=== PATIENT | female | born 1975 | race Caucasian/White ===

== ENCOUNTER → 2023-10-10 10:14 | Outpatient (REF) | payer MEDICARE, OTHER, SELFPAY | LOC: WDC 10:14 | PROVIDERS: ATTENDING PHYSICIAN Family Medicine | DX: N60.09 Solitary cyst of unspecified breast (principal); R92.8 Other abnormal and inconclusive findings on diagnostic imaging of breast | CPT/HCPCS: 76642; 77065 ==

== ENCOUNTER → 2024-03-23 14:54 | Outpatient (REF) | payer MEDICARE, OTHER, SELFPAY | LOC: RAD 14:54 | PROVIDERS: ATTENDING PHYSICIAN Surgery Vascular Surgery; FAMILY PHYSICIAN Family Medicine | DX: I77.0 Arteriovenous fistula, acquired (principal) | CPT/HCPCS: 93990 ==

== ENCOUNTER → 2024-04-29 07:43 | Outpatient (REF) | payer MEDICARE, OTHER, SELFPAY | LOC: WDC 07:43 | PROVIDERS: ATTENDING PHYSICIAN Family Medicine | DX: R92.8 Other abnormal and inconclusive findings on diagnostic imaging of breast (principal) | CPT/HCPCS: 76642 ==

== ENCOUNTER 2024-05-04 10:09 | Day surgery (SDC) | payer MEDICARE, OTHER, SELFPAY ==
[2024-05-04] VITALS (9 sets, daily range): BP systolic 13–141; BP diastolic 68–80; BMI 16.9
[2024-05-04 10:50] LABS: Hematocrit 36.6 % (37.0-47.0); Hemoglobin 12.3 g/dL (12.0-16.0); Mean Corp Hgb Conc. 33.6 g/dL (33.0-37.0); Mean Corpuscular Hgb 30.7 pg (27.0-31.0); Mean Corpuscular Volume 91.3 fL (81.0-99.0); Platelet Count 265 10^3/uL (130-400); Red Blood Cell Count 4.01 10^6/uL (4.20-5.40); Red Cell Dist. Width 12.3 % (11.5-14.5); White Blood Cell Count 4.3 10^3/uL (4.8-10.8)
[2024-05-04 11:04] LABS: PT 13.2 Sec (11.4-14.6)
[2024-05-04 11:05] LABS: APTT 31.4 Sec (23.4-35.0)
[2024-05-04 11:07] LABS: Blood Urea Nitrogen 16 mg/dl (7-17); Calcium 9.8 mg/dl (8.4-10.2); Carbon Dioxide 25 mmol/L (22-30); Chloride 104 mmol/L (98-107); Estimated Creatinine Clearance 51 ml/min; Glucose 102 mg/dl (70-99); Potassium 5.3 mmol/L (3.5-5.1); Sodium 139 mmol/L (135-145); eGFR > 60.00
[2024-05-04] MEDS: NSS 500 IV (11:28)
--- NOTE | 2024-05-04 11:38 | HP.FOC2 ---
Focused History & Physical
Chief Complaint
HPI:
Chief Complaint: Plan to preserve fistula while off HD status post transplant
HPI / Indication for Planned Procedure: 48-year-old female status post kidney transplant, doing well, off HD. Here for planned procedure today, fistulogram to preserve patency of the AV fistula. Previous fistulogram we ballooned the
proximal/perianastomotic stenosis. Patient agrees to proceeding with planned procedure today
Relevant Past Medical History: Other (Anemia, anorexia, CKD, peripheral neuropathy, cataracts, current smoker, alcohol abuse, hypercalcemia, vitamin B12 deficiency, folate deficiency, pancreatitis, cirrhosis of the liver,)
Relevant Social History: ETOH and Tobacco Use
Relevant Family History: Negative
Relevant Past Surgical History: Positive for (Left upper extremity AV fistula creation, fistula thrombectomy, fistulogram, kidney transplant October 2023, bilateral cataract surgery)
Medication
See Medication form for detailed medications: Yes
Medication List (including Herbals & OTC):
gabapentin 300 mg capsule 300 mg PO BID Neurological Condition 11/30/20
quetiapine 100 mg tablet (Seroquel) 100 mg PO HS 03/23/21
Medical Marijuana 1 dose PO PRN PRN anxiety/SLEEP 07/12/22
omeprazole 20 mg capsule,delayed release 20 mg PO HS 07/12/22
alprazolam 0.5 mg tablet (Xanax) 0.5 mg PO PRN PRN Anxiety 04/30/24
atorvastatin 10 mg tablet (Lipitor) 10 mg PO DAILY 04/30/24
atovaquone 750 mg/5 mL oral suspension 1,500 mg PO DAILY 04/30/24
lamotrigine 150 mg tablet (Lamictal) 150 mg PO DAILY 04/30/24
lamotrigine 25 mg tablet (Lamictal) 25 mg PO DAILY 04/30/24
lorazepam 1 mg capsule,extended release 24 hr 1 mg PO HS 04/30/24
magnesium chloride 64 mg (magnesium chloride) tablet 360 mg PO BID 04/30/24
mycophenolate sodium 180 mg tablet,delayed release 720 mg PO BID 04/30/24
quetiapine 25 mg tablet (Seroquel) 25 mg PO DAILY 04/30/24
quetiapine 50 mg tablet (Seroquel) 50 mg PO DAILY 04/30/24
quetiapine 50 mg tablet (Seroquel) 50 mg PO DAILY@1500 04/30/24
tacrolimus 1 mg tablet,extended release 24 hr (Envarsus XR) 2 mg PO DAILY 04/30/24
tacrolimus 4 mg tablet,extended release 24 hr (Envarsus XR) 4 mg PO DAILY 04/30/24
Medications Reviewed: Yes
Allergies and Reactions
Patient has Allergies: Yes
Noted Allergies and Reactions:
Allergy/AdvReac Type Severity Reaction Status Date / Time
bupropion [From Wellbutrin] Allergy Unknown Verified 05/04/24 11:06
NSAIDS (Non-Steroidal Allergy Unknown Verified 05/04/24 11:06
Anti-Inflamma
Sulfa (Sulfonamide Allergy Unknown Verified 05/04/24 11:06
Antibiotics)
Pertinent Physical Exam
All Other Systems: Negative
Head/Neck: Normal
Lungs: Normal
Heart: Normal
Abdomen: Normal
Extremities: Normal
Neurological: Normal
Diagnosis / Assessment
Status post kidney transplant, plan to keep AV fistula patent while not on HD at this time
Plan / Procedure
Left upper extremity fistulogram, central venogram, possible angioplasty/stent
Anesthesia/Sedation to be done by Anesthesia Provider: Yes
--- NOTE | 2024-05-04 12:05 | W.SUR.PREOP ---
Pre-Operative Surgical Note
-
I have examined this patient prior to the performance of the scheduled procedure.
The patient's condition is unchanged from the time of the current History and
Physical and the patient is able to undergo the scheduled procedure.
--- NOTE | 2024-05-04 13:45 | W.SUR.POST ---
Surgical Immediate Post Op
Note
Pre Op Diagnosis: ESRD
Post Op Diagnosis: ESRD
Procedure Performed: LUE diagnostic fistulagram, central venogram
Primary Surgeon: Qi
Anesthesia: local and sedation
Estimated Blood Loss: <2cc
Fluids: see anesthesia flow sheet
Drains/Shunts: none
Specimens/Cultures: none
Doppler/Duplex/Angio (Y/N): Y
Complications: none
Operative Findings: Occluded AV anastomosis
--- NOTE | 2024-05-04 14:19 | OR.RPT ---
Operative Report
Operative Report
Date of Operation: 05/04/2024
Pre Op Diagnosis:
1.) Failing left upper extremity brachiobasilic AV fistula
2.) Status post successful kidney transplant
Post Op Diagnosis:
1.) Failing left upper extremity brachiobasilic AV fistula
2.) Status post successful kidney transplant
Procedure:
1.) Diagnostic left upper extremity fistulogram
2.) Ultrasound-guided percutaneous access to the left upper arm arteriovenous fistula
Surgeon: Hilton Busby III, MD
Anesthesia: Sedation
Complications: None
Fluoroscopy:
34.4 minutes
14 mGy
1.27 DAP
History and Indications for Procedure: 48-year-old female with existing left upper extremity brachiobasilic AV fistula. She underwent a successful kidney transplant and is no longer on dialysis however she was sent back for evaluation of her left
upper extremity fistula which demonstrated a weak thrill. Preoperative duplex imaging revealed significantly low flow volumes and a high grade stenosis of the ina-anastomotic vein. After discussion with her rural carrier associate we decided to pursue
intervention on the fistula for preservation.
Procedure in Detail: Lilo Mejia was correctly identified and placed supine on the operating table. After adequate induction of anesthesia the left arm was positioned, prepped and draped in the usual sterile fashion. Preoperative antibiotics were
administered. A timeout procedure was performed with the nursing and anesthesia staff confirming the patient�s identity as well as the nature and laterality of the procedure.
Intraoperative ultrasound was performed on the AV access. This was a transposed left upper arm brachiobasilic arteriovenous fistula.. Ultrasound demonstrated a compressible basilic vein with no thrombus. In the vein adjacent to the arteriovenous
anastomosis there appeared to be a high-grade stenosis or focal occlusion.
I identified a puncture site along the mid upper arm basilic vein and infiltrated local anesthesia at this site. Under ultrasound guidance I accessed the vein with a micropuncture needle facing towards the arteriovenous anastomosis and placed the
micropuncture sheath. I performed a fistulogram which demonstrated the following:
The basilic vein filled with contrast however no flow could be demonstrated within the fistula. The fistula simply filled with contrast but did not wash out. The arteriovenous anastomosis could not be visualized. There was no washout of contrast
from the fistula. The proximal portion of the vein adjacent to the arteriovenous anastomosis appeared to be occluded. I could not reflux any contrast or see a proximal stump. I proceeded with an attempted intervention to see if I could cross the
occluded proximal vein segment as well as the arteriovenous anastomosis, perhaps restore arterial flow through the fistula and preserve the access.
Attempted endovascular intervention:
Systemic heparin was administered. A short 5 Fr sheath was placed. Using an angled catheter and a Glidewire I attempted to navigate across the occluded segment of vein in the arteriovenous anastomosis. This was very challenging as there was no
clear stump to engage with either the wire or catheter. I attempted to cross with a combination of fluoroscopic guidance as well as ultrasound guidance to visualize the segment of proximal vein which was occluded. A regular Glidewire, stiff
Glidewire and a V18 wire were all used along with the angled catheter. Unfortunately I could not make any progress and my attempt at crossing the proximal vein and arteriovenous anastomosis failed. No further endovascular intervention was
performed.
At the conclusion of the procedure a monocryl suture was placed around the sheath puncture site. The sheath was removed and the suture secured. Hemostasis was achieved. A sterile dressing was applied.
The patient tolerated the procedure well and was taken to the PACU in stable condition
Signed:
Hilton Busby III, MD
[facility] Vascular Surgery
[phone] (cell)
== END 2024-05-04 15:00 | disposition home or self-care (01) ==
LOC: CATH 10:09
PROVIDERS: ATTENDING PHYSICIAN Surgery Vascular Surgery; FAMILY PHYSICIAN Family Medicine
DX: T82.858A Stenosis of other vascular prosthetic devices, implants and grafts, initial encounter (principal); Y83.2 Surgical operation with anastomosis, bypass or graft as the cause of abnormal reaction of the patient, or of later complication, without mention of misadventure at the time of the procedure; N18.6 End stage renal disease; I77.0 Arteriovenous fistula, acquired; Z94.0 Kidney transplant status; R63.0 Anorexia; D64.9 Anemia, unspecified; F10.10 Alcohol abuse, uncomplicated; G62.9 Polyneuropathy, unspecified; F17.210 Nicotine dependence, cigarettes, uncomplicated; N18.9 Chronic kidney disease, unspecified; E53.8 Deficiency of other specified B group vitamins; K70.30 Alcoholic cirrhosis of liver without ascites; I73.9 Peripheral vascular disease, unspecified; Z79.624 Long term (current) use of inhibitors of nucleotide synthesis
CPT/HCPCS: 36901; 76937; 80048; 85027; 85610; 85730; 93005; C1769; C1894; Q9967

== ENCOUNTER → 2024-05-05 13:07 | Outpatient (REF) | payer MEDICARE, OTHER, SELFPAY | LOC: HWRAD 13:07 | PROVIDERS: ATTENDING PHYSICIAN Family Medicine | DX: Z13.820 Encounter for screening for osteoporosis (principal); Z13.6 Encounter for screening for cardiovascular disorders; Z78.0 Asymptomatic menopausal state | CPT/HCPCS: 75571; 77080 ==

== ENCOUNTER → 2024-05-23 07:32 | Outpatient (REF) | payer MEDICARE, OTHER, SELFPAY | LOC: MRI 3T 07:32 | PROVIDERS: ATTENDING PHYSICIAN Family Medicine | DX: M54.50 Low back pain, unspecified (principal) | CPT/HCPCS: 72148 ==

== ENCOUNTER 2024-07-07 06:39 | Emergency (ER) | payer MEDICARE, OTHER, SELFPAY ==
[2024-07-07 06:42] VITALS: BP 129/92
[2024-07-07 07:22] VITALS: BMI 17.6
[2024-07-07 07:28] LABS: Urine Albumin Negative (Neg - Trace); Urine Bilirubin Negative (Negative); Urine Character Clear (Clear); Urine Color Yellow; Urine Glucose Negative (Negative); Urine Ketone Negative (Negative); Urine Leukocyte Trace (Negative); Urine Nitrite Negative (Negative); Urine Occult Blood Negative (Negative); Urine Specific Gravity 1.015 (<1.030); Urine Urobilinogen Negative (Neg - 1+)
[2024-07-07] MEDS: MORPHINE SULFATE 2 MG IV (07:38)
[2024-07-07 07:39] VITALS: BP 125/85
[2024-07-07 07:39] LABS: Urine Red Blood Cell 0-2 /HPF (0-2); Urine White Cell 0-2 /HPF (0-5)
[2024-07-07 07:44] LABS: % Basophils 0.9 % (0-2); % Eosinophils 1.5 % (0-6); % Immature Granulocytes 1.5 % (0-0.5); % Lymphocytes 8.9 % (20.5-51.1); % Monocytes 4.9 % (1.7-9.3); % Neutrophils 82.3 % (42.2-75.2); Absolute Basophils 0.1 10^3/uL (0-0.2); Absolute Eosinophils 0.1 10^3/uL (0-0.7); Absolute Immature Granulocytes 0.1 10^3/uL (0-0.05); Absolute Lymphocytes 0.5 10^3/uL (1.2-3.4); Absolute Monocytes 0.3 10^3/uL (0.1-0.6); Absolute Neutrophils 4.3 10^3/uL (1.4-6.5); Hematocrit 37.4 % (37.0-47.0); Hemoglobin 12.3 g/dL (12.0-16.0); Mean Corp Hgb Conc. 32.9 g/dL (33.0-37.0); Mean Corpuscular Hgb 29.5 pg (27.0-31.0); Mean Corpuscular Volume 89.7 fL (81.0-99.0); Mean Platelet Volume 10.3 fL (7.4-10.4); Nucleated Red Blood Cells % 0 %; Platelet Count 243 10^3/uL (130-400); Red Blood Cell Count 4.17 10^6/uL (4.20-5.40); Red Cell Dist. Width 12.5 % (11.5-14.5); White Blood Cell Count 5.3 10^3/uL (4.8-10.8)
[2024-07-07 08:00] VITALS: BP 120/80
--- NOTE | 2024-07-07 08:07 | ED.GENMED ---
History of Present Illness
General
Chief Complaint: Flank Pain
Source: patient and spouse
Time Seen by Provider: 07/07/24 07:05
History of Present Illness
History of Present Illness:
48-year-old female with past medical history of chronic kidney disease status post right renal transplant, eating disorder, pancreatitis, previous alcohol abuse presenting to the emergency department for evaluation of left-sided mid back/flank pain
that began gradually yesterday around 2:30 in the afternoon, worsening throughout the evening into the morning prompting her to come to the ER for further evaluation. Patient states the pain is significantly worse with any movement or range of
motion noting that even when she was sitting on the toilet trying to provide a urine specimen here she was not even able to get up off the toilet without assistance due to the pain. Patient currently being treated for urinary tract infection, had
been on Macrobid with no success so was recently switched over to amoxicillin. Patient follows with [place] transplant team and gets urinalysis done every month. She notes that she has not been having urinary symptoms but had greater than 100,000
CFU of E. coli on her last urine culture. Patient is currently denying any fevers, chills, rigors, nausea, vomiting, bowel changes or any other symptoms. She did not take anything for the pain prior to arrival.
Past History
Past History
ED Past Medical History: Renal failure and Other
ED Past Surgical History: Other (Cataract surgery and summer)
Social History
Tobacco: Smoker
Alcohol: Binge drinker
Drug: None
Personal:
Living: with family
Employment: Not employed
Family History
Family History: Other (No significant)
Review of Systems
Review of Systems
All Other Systems: ROS reviewed and negative except as documented in HPI and ROS
Phy Exam
Physical Exam
Physical Exam:
GENERAL: Alert , in no apparent distress at rest but appears quite uncomfortable with movement and grimaces during movement
EYE: clear conjunctiva b/l
HEAD: NCAT
ENT: mmm.
CARDIAC: Regular rate and rhythm .
LUNGS: Clear breath sounds bilaterally, no acute respiratory distress, no wheezes/rales/rhonchi
ABDOMEN: Soft, without focal tenderness, no r/g, no cvat
BACK: Reproducible tenderness to the left mid back within the thoracolumbar region, no rashes
NEUROLOGICAL: Alert and oriented
SKIN: Warm and dry, skin intact.
MUSCULOSKELETAL: No edema, well perfused.
PSYCH: Normal and appropriate interaction.
Scores
Heart Failure Risk
Heart Failure Risk Score: Not Applicable
Heart Score for Chest Pain Patients
STEMI patient?: Not applicable
Withdrawal Assessment of Alcohol
Withdrawal Assessment Completed?: Not applicable
Course
Orders/Labs/Results
Orders:
Orders
07/07/24 07:20
Urinalysis Reflex To Culture Urgent
Date Specimen was Collected: 07/07/24
Time Specimen was Collected: 07:19
Urine Microscopic Reflex Cult Urgent
07/07/24 07:27
CT Abd/pel Without Iv Or Oral Urgent
Comment:
Reason For Exam: left mid back/flank pain, right renal transplant
Morphine Sulfate 2 mg IV NOW STA
Test Result ONCE
07/07/24 07:31
Beta HCG Quantitative Urgent
Comment: ADD ON
Complete Blood Count/With Diff Urgent
Comprehensive Metabolic Panel Urgent
HCG, Serum Qualitative Screen Urgent
07/07/24 08:14
Add On- LAB Urgent
Tests Added?: HCG quant
07/07/24 08:40
Diazepam [Valium] 5 mg PO NOW STA
Abnormal Lab Results
07/07/24 07/07/24
07:20 07:31
RBC 4.17 L 10^6/uL
(4.20-5.40)
MCHC 32.9 L g/dL
(33.0-37.0)
Abs Immat Gran (auto) 0.1 H 10^3/uL
(0-0.05)
Absolute Lymphs (auto) 0.5 L 10^3/uL
(1.2-3.4)
Immature Gran % 1.5 H %
(0-0.5)
Neutrophils % 82.3 H %
(42.2-75.2)
Lymphocytes % 8.9 L %
(20.5-51.1)
BUN 18 H mg/dl
(7-17)
Glucose 129 H mg/dl
(70-99)
Calcium 10.3 H mg/dl
(8.4-10.2)
Leukocyte Esterase Rfl Trace A
(Negative)
07/07/24 07:31
07/07/24 07:31
Vital Signs
Initial and Last Documented VS:
Initial Vital Signs
Temp Pulse Resp BP Pulse Ox
98.2 F 77 16 129/92 99
07/07/24 06:42 07/07/24 06:42 07/07/24 06:42 07/07/24 06:42 07/07/24 06:42
Last Documented Vital Signs
Temp Pulse Resp BP Pulse Ox
98.2 F 77 16 104/68 96
07/07/24 06:42 07/07/24 06:42 07/07/24 06:42 07/07/24 10:30 07/07/24 10:31
MDM/Problems Addressed
Differential Diagnosis Includes:
Musculoskeletal back pain, renal/ureteral colic, pyelonephritis
MDM/Problems Addressed:
48-year-old female presenting to the ER for evaluation of left-sided back/flank pain that started yesterday around 230 with no mechanism. Worsening pain this morning prompting her to come to the ER. Pain seems to be very clearly reproducible with
any type of movement. I suspect a muscular etiology to be the most likely diagnosis however patient with significant risk factors for renal dysfunction and infection given her immunocompromise state with her recent renal transplant. Will check
labs, CT imaging and urinalysis. Disposition pending
*Radiology
Radiology exam reviewed: radiology read reviewed
*Pulse Oximetry
Patient hypoxic: no
*Critical Care Note
Total Time (30-74mins, 75-104mins- exclusive of procedures): Not Applicable
Comment
Comment:
8:15 AM: Received call from lab that patient's hCG qualitative was positive. I have significant doubt for this being a positive results given patient's age combined with her chronic medical conditions. Will send off an hCG quantitative.
Patient Management
Escalation/DeEscalation of care consider admission/obs:
CT negative for any acute pathologies. Patient feels well to be discharged home. Again I suspect muscular etiology to be the most likely prescription for Valium sent to pharmacy. Patient will follow-up with primary care provider and is aware of
return precautions.
ED Attending Note
-
Portions of this chart may have been created with voice recognition software.� Occasional wrong word or��sound alike� substitutions may have occurred due to the inherent limitations of voice recognition software.
Discharge Plan
Departure
Patient Disposition: Home (Routine Discharge)
Date of Disposition: 07/07/24
Time of Disposition: 10:01
Patient with high blood pressure during this ER visit?: No
Discharge Problem:
Dorsalgia
Instructions: Back Pain
Prescriptions:
New
diazepam [Valium] 5 mg tablet
5 mg PO BID PRN (Reason: muscle spasm) Qty: 8 0RF
No Action
gabapentin 300 MG capsule
300 mg PO BID
quetiapine [Seroquel] 100 MG tablet
100 mg PO HS
omeprazole 20 mg capsule,delayed release(DR/EC)
20 mg PO HS
Medical Marijuana
1 dose PO PRN PRN (Reason: anxiety/SLEEP)
Patient Comments:
07/12/22 Per patient she uses [employer] in [place] or [place] as oil,tincture and pills, she puts takes two 10mg RELAX pills as needed for anxiety
quetiapine [Seroquel] 25 mg Tablet
25 mg PO DAILY
lamotrigine [Lamictal] 150 mg Tablet
150 mg PO DAILY
atorvastatin [Lipitor] 10 mg Tablet
10 mg PO DAILY
lamotrigine [Lamictal] 25 mg Tablet
25 mg PO DAILY
alprazolam [Xanax] 0.5 mg Tablet
0.5 mg PO PRN PRN (Reason: Anxiety)
atovaquone 750 mg/5 mL Suspension
1,500 mg PO DAILY
mycophenolate sodium 180 mg Tablet,Delayed Release (Dr/Ec)
720 mg PO BID
quetiapine [Seroquel] 50 mg Tablet
50 mg PO DAILY
quetiapine [Seroquel] 50 mg Tablet
50 mg PO DAILY@1500
Envarsus XR 1 mg Tablet Extended Release 24 Hr
2 mg PO DAILY
Envarsus XR 4 mg Tablet Extended Release 24 Hr
4 mg PO DAILY
magnesium chloride 64 mg magnesium Tablet
360 mg PO BID
lorazepam 1 mg Capsule,Extended Release 24hr
1 mg PO HS
Referrals:
Felipe Wilhelm DO [Family Provider] -
Interventions
Interventions:
*Risk Screen - Suicide Last Done: 07/07/24 06:42
*General Assessment Last Done: 07/07/24 10:58
*Neglect/Abuse Screening Last Done: 07/07/24 10:58
ED- Fall Risk Assessment Last Done: 07/07/24 10:35
*ED COVID-19 Vaccine History Last Done: 07/07/24 10:58
*Nursing Disposition Last Done: 07/07/24 10:35
ZI-Vyztic-Xrlcwbrohv Assessment Last Done: 07/07/24 08:57
ED-Female Genitourinary Assessment Last Done: 07/07/24 08:57
Discharge Date and Time
Discharge Date/Time: 07/07/24 10:35
Print Language: CAP[place]
[2024-07-07 08:15] LABS: ALT (SGPT) 26 U/L (0-35); AST (SGOT) 36 U/L (14-36); Albumin 4.9 g/dl (3.5-5.0); Alkaline Phosphatase 72 U/L (38-126); Blood Urea Nitrogen 18 mg/dl (7-17); Calcium 10.3 mg/dl (8.4-10.2); Carbon Dioxide 22 mmol/L (22-30); Chloride 105 mmol/L (98-107); Estimated Creatinine Clearance 48 ml/min; Glucose 129 mg/dl (70-99); Sodium 139 mmol/L (135-145); Total Bilirubin 0.5 mg/dl (0.2-1.3); Total Protein 7.2 g/dl (6.3-8.2); eGFR > 60.00
[2024-07-07] MEDS: VALIUM 5 MG PO (08:54)
[2024-07-07 08:55] LABS: Beta HCG Quantitative 8.73 mIU/ml
[2024-07-07 09:00] VITALS: BP 127/85
[2024-07-07 10:30] VITALS: BP 104/68
== END 2024-07-07 10:35 | disposition home or self-care (01) ==
LOC: EMR 06:39
PROVIDERS: Physician Assistant Medical; EMERGENCY PHYSICIAN Student in an Organized Health Care Education/Training Program; FAMILY PHYSICIAN Family Medicine
DX: M54.9 Dorsalgia, unspecified (principal); N18.9 Chronic kidney disease, unspecified; Z94.0 Kidney transplant status; F17.200 Nicotine dependence, unspecified, uncomplicated; Z87.440 Personal history of urinary (tract) infections
CPT/HCPCS: 99284; 96374; 74176; 80053; 81003; 81015; 84702; 84703; 85025

== ENCOUNTER → 2025-03-16 18:39 | Outpatient (REF) | payer MEDICARE, OTHER, SELFPAY | LOC: WDC 18:39 | PROVIDERS: ATTENDING PHYSICIAN Obstetrics & Gynecology; FAMILY PHYSICIAN Family Medicine | DX: Z12.31 Encounter for screening mammogram for malignant neoplasm of breast (principal) | CPT/HCPCS: 77063; 77067 ==

== ENCOUNTER → 2025-03-17 10:55 | Outpatient (REF) | payer MEDICARE, OTHER, SELFPAY | LOC: HWRAD 10:55 | PROVIDERS: ATTENDING PHYSICIAN Family Medicine; REFERRING PHYSICIAN Internal Medicine Gastroenterology | DX: R91.1 Solitary pulmonary nodule (principal) | CPT/HCPCS: 71250 ==

== ENCOUNTER 2025-07-27 13:16 | Inpatient (IN) | payer MEDICARE, OTHER, SELFPAY ==
[2025-07-27 08:38] VITALS: BP 104/53
--- NOTE | 2025-07-27 09:22 | ED.GENMED ---
History of Present Illness
<Giancarlo Umanzor PA-C - Last Filed: 07/27/25 13:37>
General
Chief Complaint: Dehydration Symptoms
Source: patient
Time Seen by Provider: 07/27/25 09:12
History of Present Illness
History of Present Illness:
49-year-old female with past medical history of kidney transplant status post unspecified renal failure, previous alcohol abuse, previous anorexia/bulimia, hyperlipidemia presenting to the ER at the request of primary care provider for evaluation of
generally feeling unwell, confusion, weakness and fatigue, seen in office at the primary care office today and found to be hypotensive, diminished p.o. intake. No focal symptoms, no reported fevers. Patient had her renal transplant done at [place]
3 years ago, no complications since. Does note recently traveling to [facility] for a family gathering but reports no other sick contacts. Patient denies any chest pain or shortness of breath, abdominal pain, urinary symptoms or any other
concerns presently.
Past History
<Giancarlo Umanzor PA-C - Last Filed: 07/27/25 13:37>
Past History
ED Past Medical History: Hypercholesterolemia, Renal failure, Psychiatric and Other
ED Past Surgical History: Other (Cataract surgery and summer)
Social History
Tobacco: Smoker
Alcohol: Former
Drug: None
Personal:
Living: with family
Employment: Not employed
Family History
Family History: Other (No significant)
Review of Systems
<Giancarlo Umanzor PA-C - Last Filed: 07/27/25 13:37>
Review of Systems
All Other Systems: ROS reviewed and negative except as documented in HPI and ROS
Phy Exam
<Giancarlo Umanzor PA-C - Last Filed: 07/27/25 13:37>
Physical Exam
Physical Exam:
GENERAL: Alert , in no apparent distress, thin, appears older than stated age
EYE: clear conjunctiva b/l
HEAD: NCAT
ENT: o/p clr, mmm.
CARDIAC: Regular rate and rhythm .
LUNGS: Clear breath sounds bilaterally, no acute respiratory distress, no wheezes/rales/rhonchi
ABDOMEN: Soft, mild right sided and suprapubic tenderness, no r/g, no cvat, negative Siegel sign, no tenderness at McBurney's point
NEUROLOGICAL: Alert and oriented
SKIN: Warm and dry, skin intact.
MUSCULOSKELETAL: No edema, well perfused.
PSYCH: Normal and appropriate interaction.
Scores
<Giancarlo Umanzor PA-C - Last Filed: 07/27/25 13:37>
Heart Failure Risk
Heart Failure Risk Score: Not Applicable
Heart Score for Chest Pain Patients
STEMI patient?: Not applicable
Withdrawal Assessment of Alcohol
Withdrawal Assessment Completed?: Not applicable
Course
<Giancarlo Umanzor PA-C - Last Filed: 07/27/25 13:37>
Orders/Labs/Results
Orders:
Orders
07/27/25 09:22
0.9% Sodium Chloride 1000 ml [Nss] 1,000 ml IV BOLUS
07/27/25 09:49
Ammonia Urgent
Complete Blood Count/With Diff Urgent
Comprehensive Metabolic Panel Urgent
Lactic Acid Q4H
Comment: CANCEL 2nd LACTIC ACID IF 1st LACTIC ACID IS LESS THAN 2
Lipase Urgent
Magnesium Urgent
PTT Urgent
Prothrombin Time Urgent
Urinalysis Reflex To Culture Urgent
Date Specimen was Collected: 07/27/25
Time Specimen was Collected: 09:32
Urine Microscopic Reflex Cult Urgent
Urine Culture Urgent
DANK Source: U
Specimen Description:
Date Specimen was Collected: 07/27/25
Time Specimen was Collected: 09:32
07/27/25 Lunch
Regular
At Your Request: Full Participation
07/27/25 10:30
US Kidneys [US Renal Only W/O Bladder] Urgent
Comment:
Reason For Exam: renal failure s/p renal transplant
07/27/25 10:43
CefTRIAXone [Rocephin] 1,000 mg IV NOW STA
07/27/25 10:52
Add On- LAB Urgent
Tests Added?: Urine culture
07/27/25 10:59
Blood Culture Q30M
DANK Source: Blood/Venous
Specimen Description:
Blood Culture Q30M
DANK Source: Blood/Venous
Specimen Description:
07/27/25 12:28
CT Head W/o Iv Contrast Routine
Comment:
Reason For Exam: persistent headache/dizziness for 1 week
07/27/25 12:29
Acetaminophen [Tylenol] 1,000 mg PO NOW STA
07/27/25 12:51
Admit/Transfer Patient As Directed
Co-Sign Provider:
Level of Care: Inpatient admission
Assign to:: Telemetry
Physician / Group: Fanny Hernandez
Diagnosis: Possible Sepsis (tachy, wbc) unclear etiology
Reason for Telemetry: Arrhythmia
Date to Stop Telemetry: 07/30/25
Time to Stop Telemetry: 11:00
Reason for Hospitalization: Possible Sepsis (tachy, wbc) unclear etiology
Expected length of stay greater than two midnights?: Yes
ELOS- Estimated Length of Stay in days: 2
I certify the patient meets the requirements for IP care: Yes
07/27/25 12:52
PRN Pain Medication Management As Directed
May give lesser potent ordered pain med per pt: Yes
preference::
Protocol:: Medication orders for pain may be administered in a
manner that supports deferring to patient preference
when the pt is:
- Requesting an ordered lesser potent pain medication.
Least to most potent pain medications are defined
as: acetaminophen < NSAID < tramadol < opioids
(morphine, oxycodone, hydromorphone).
- Requesting a lesser dose of the same medication IF
ORDERED.
- Requesting a less intrusive route of administration
if both routes are prescribed by the provider (PO <
IV).
07/27/25 13:01
Code Status As Directed
Resuscitation Status: Full Code
07/30/25 11:00
DC Protocol for Telemetry ONCE
Abnormal Lab Results
07/27/25
09:49
WBC 12.4 H 10^3/uL
(4.8-10.8)
RBC 3.77 L 10^6/uL
(4.20-5.40)
Hgb 10.7 L g/dL
(12.0-16.0)
Hct 31.9 L %
(37.0-47.0)
Abs Immat Gran (auto) 0.1 H 10^3/uL
(0-0.05)
Absolute Neuts (auto) 10.3 H 10^3/uL
(1.4-6.5)
Absolute Lymphs (auto) 0.6 L 10^3/uL
(1.2-3.4)
Absolute Monos (auto) 1.4 H 10^3/uL
(0.1-0.6)
Immature Gran % 0.9 H %
(0-0.5)
Neutrophils % 82.8 H %
(42.2-75.2)
Lymphocytes % 5.0 L %
(20.5-51.1)
Monocytes % 10.9 H %
(1.7-9.3)
PT 15.8 H Sec
(11.4-14.6)
APTT 38.1 H Sec
(23.4-35.0)
Sodium 132 L mmol/L
(135-145)
Potassium 3.1 L mmol/L
(3.5-5.1)
BUN 32 H mg/dl
(7-17)
Creatinine 2.2 H mg/dL
(0.6-1.0)
Glucose 124 H mg/dl
(70-99)
Lactic Acid 0.6 L mmol/L
(0.7-2.0)
Ammonia < 9 L umol/L
(9-30)
Lipase < 10 L U/L
(23-300)
Ur Occult Blood Reflex 4+ A
(Negative)
Leukocyte Esterase Rfl 3+ A
(Negative)
Urine WBC (Reflex) >100 A /HPF
(0-5)
Urine Albumin (Reflex) 3+ A
(Neg - Trace)
07/27/25 09:49
07/27/25 09:49
Vital Signs
Initial and Last Documented VS:
Initial Vital Signs
Temp Pulse Resp BP Pulse Ox
98.4 F 101 16 104/53 98
07/27/25 08:38 07/27/25 08:38 07/27/25 08:38 07/27/25 08:38 07/27/25 08:38
Last Documented Vital Signs
Temp Pulse Resp BP Pulse Ox
98.4 F 101 16 104/53 98
07/27/25 08:38 07/27/25 08:38 07/27/25 08:38 07/27/25 08:38 07/27/25 09:24
Westleylt;Anders Munoz, - Last Filed: 07/27/25 10:53>
Orders/Labs/Results
Orders:
Orders
07/27/25 09:22
0.9% Sodium Chloride 1000 ml [Nss] 1,000 ml IV BOLUS
07/27/25 09:49
Ammonia Urgent
Complete Blood Count/With Diff Urgent
Comprehensive Metabolic Panel Urgent
Lactic Acid Q4H
Comment: CANCEL 2nd LACTIC ACID IF 1st LACTIC ACID IS LESS THAN 2
Lipase Urgent
Magnesium Urgent
PTT Urgent
Prothrombin Time Urgent
Urinalysis Reflex To Culture Urgent
Date Specimen was Collected: 07/27/25
Time Specimen was Collected: 09:32
Urine Microscopic Reflex Cult Urgent
Urine Culture Urgent
DANK Source: U
Specimen Description:
Date Specimen was Collected: 07/27/25
Time Specimen was Collected: 09:32
07/27/25 Lunch
Regular
At Your Request: Full Participation
07/27/25 10:30
US Kidneys [US Renal Only W/O Bladder] Urgent
Comment:
Reason For Exam: renal failure s/p renal transplant
07/27/25 10:43
CefTRIAXone [Rocephin] 1,000 mg IV NOW STA
07/27/25 10:52
Add On- LAB Urgent
Tests Added?: Urine culture
07/27/25 10:59
Blood Culture Q30M
DANK Source: Blood/Venous
Specimen Description:
Blood Culture Q30M
DANK Source: Blood/Venous
Specimen Description:
07/27/25 12:28
CT Head W/o Iv Contrast Routine
Comment:
Reason For Exam: persistent headache/dizziness for 1 week
07/27/25 12:29
Acetaminophen [Tylenol] 1,000 mg PO NOW STA
07/27/25 12:51
Admit/Transfer Patient As Directed
Co-Sign Provider:
Level of Care: Inpatient admission
Assign to:: Telemetry
Physician / Group: Fanny Hernandez
Diagnosis: Possible Sepsis (tachy, wbc) unclear etiology
Reason for Telemetry: Arrhythmia
Date to Stop Telemetry: 07/30/25
Time to Stop Telemetry: 11:00
Reason for Hospitalization: Possible Sepsis (tachy, wbc) unclear etiology
Expected length of stay greater than two midnights?: Yes
ELOS- Estimated Length of Stay in days: 2
I certify the patient meets the requirements for IP care: Yes
07/27/25 12:52
PRN Pain Medication Management As Directed
May give lesser potent ordered pain med per pt: Yes
preference::
Protocol:: Medication orders for pain may be administered in a
manner that supports deferring to patient preference
when the pt is:
- Requesting an ordered lesser potent pain medication.
Least to most potent pain medications are defined
as: acetaminophen < NSAID < tramadol < opioids
(morphine, oxycodone, hydromorphone).
- Requesting a lesser dose of the same medication IF
ORDERED.
- Requesting a less intrusive route of administration
if both routes are prescribed by the provider (PO <
IV).
07/27/25 13:01
Code Status As Directed
Resuscitation Status: Full Code
07/30/25 11:00
DC Protocol for Telemetry ONCE
Abnormal Lab Results
07/27/25
09:49
WBC 12.4 H 10^3/uL
(4.8-10.8)
RBC 3.77 L 10^6/uL
(4.20-5.40)
Hgb 10.7 L g/dL
(12.0-16.0)
Hct 31.9 L %
(37.0-47.0)
Abs Immat Gran (auto) 0.1 H 10^3/uL
(0-0.05)
Absolute Neuts (auto) 10.3 H 10^3/uL
(1.4-6.5)
Absolute Lymphs (auto) 0.6 L 10^3/uL
(1.2-3.4)
Absolute Monos (auto) 1.4 H 10^3/uL
(0.1-0.6)
Immature Gran % 0.9 H %
(0-0.5)
Neutrophils % 82.8 H %
(42.2-75.2)
Lymphocytes % 5.0 L %
(20.5-51.1)
Monocytes % 10.9 H %
(1.7-9.3)
PT 15.8 H Sec
(11.4-14.6)
APTT 38.1 H Sec
(23.4-35.0)
Sodium 132 L mmol/L
(135-145)
Potassium 3.1 L mmol/L
(3.5-5.1)
BUN 32 H mg/dl
(7-17)
Creatinine 2.2 H mg/dL
(0.6-1.0)
Glucose 124 H mg/dl
(70-99)
Lactic Acid 0.6 L mmol/L
(0.7-2.0)
Ammonia < 9 L umol/L
(9-30)
Lipase < 10 L U/L
(23-300)
Ur Occult Blood Reflex 4+ A
(Negative)
Leukocyte Esterase Rfl 3+ A
(Negative)
Urine WBC (Reflex) >100 A /HPF
(0-5)
Urine Albumin (Reflex) 3+ A
(Neg - Trace)
07/27/25 09:49
07/27/25 09:49
Vital Signs
Initial and Last Documented VS:
Initial Vital Signs
Temp Pulse Resp BP Pulse Ox
98.4 F 101 16 104/53 98
07/27/25 08:38 07/27/25 08:38 07/27/25 08:38 07/27/25 08:38 07/27/25 08:38
Last Documented Vital Signs
Temp Pulse Resp BP Pulse Ox
98.4 F 101 16 104/53 98
07/27/25 08:38 07/27/25 08:38 07/27/25 08:38 07/27/25 08:38 07/27/25 09:24
<Giancarlo Umanzor PA-C - Last Filed: 07/27/25 13:37>
MDM/Problems Addressed
Differential Diagnosis Includes:
ANKUR
Electrolyte imbalance
Viral syndrome
Covid/Flu
UTI
Pneumonia
Substance use
MDM/Problems Addressed:
49-year-old female presenting the ER for evaluation at the request of primary care provider for lethargy, hypotension and generally feeling unwell over the last few days. Patient with previous renal transplant. Blood pressure slightly improved
here compared to primary care office. Will initiate workup with labs and urinalysis. Disposition pending.
Chronic conditions affecting care: Kidney disease
Acute Exacerbation and/or Progression of Chronic Illness: Kidney disease
<Giancarlo Umanzor PA-C - Last Filed: 07/27/25 13:37>
*Radiology
Radiology exam reviewed: radiology read reviewed
*Pulse Oximetry
SaO2: 98
Oxygen Mode of Delivery: Room air
Patient hypoxic: no
*Credit Risk Analyst Interpretation
Rate: normal
Heart Rate: 87
Rhythm: sinus
*Critical Care Note
Total Time (30-74mins, 75-104mins- exclusive of procedures): Not Applicable
Data Reviewed
Review of Other/Old Records Reveals: Labs and Records
<Giancarlo Umanzor PA-C - Last Filed: 07/27/25 13:37>
Patient Management
Discussion with other providers: Hospitalist
Escalation/DeEscalation of care consider admission/obs:
Patient's labs reveal a leukocytosis of 12,000 with a leftward shift. Her chemistry reveals mild hyponatremia and hypokalemia and a new acute kidney injury in the setting of known renal transplant. Patient's urinalysis consistent with UTI. IV
Rocephin ordered. Lactic acid and cultures performed. Fluids for the acute kidney injury. Given patient's immunocompromise state combined with her now ANKUR in the setting of previous transplant will plan to admit for IV antibiotics and trending of
her renal function. Hospitalist team notified and accepts for continued evaluation and treatment. Patient follows with Dr. Alexander as an outpatient
ED Attending Note
<Giancarlo Umanzor PA-C - Last Filed: 07/27/25 13:37>
-
Portions of this chart may have been created with voice recognition software.� Occasional wrong word or��sound alike� substitutions may have occurred due to the inherent limitations of voice recognition software.
<Anders Munoz DO - Last Filed: 07/27/25 10:53>
ED Attending Note
Patient seen and examined by attending physician: Yes
I performed the substantive portion of visit, reviewed & personally made and approve the management plan that is documented in note by myself or SRINIVAS.: Yes
ED Attending Note:
Seen with PA examined independently patient referred by PCP diarrhea fatigue cloudy urine no fevers, labs are noted looks like ANKUR with UTI, will send cultures, check ultrasound to look for obstruction will require admission due to severity of
illness potential for decompensation and transplant status immunosuppressed
Discharge Plan
Departure
Patient Disposition: Admit
Date of Disposition: 07/27/25
Time of Disposition: 10:47
Presentation/result/management discussed w/ accepting MD/DO: Hospitalist
Discharge Problem:
UTI (urinary tract infection), ANKUR (acute kidney injury), Acute hypokalemia
Interventions
Interventions:
*Risk Screen - Suicide Last Done: 07/27/25 08:38
*General Assessment Last Done: 07/27/25 08:38
*Neglect/Abuse Screening Last Done: 07/27/25 08:38
*ED- Fall Risk Assessment Last Done: 07/27/25 10:14
*ED COVID-19 Vaccine History Last Done: 07/27/25 08:38
*ED Influenza Vaccine History Last Done: 07/27/25 08:38
ED- Neurological Assessment Last Done: 07/27/25 10:14
ED- Pulmonary Assessment Last Done: 07/27/25 10:14
[2025-07-27 09:59] LABS: Hematocrit 31.9 % (37.0-47.0); Hemoglobin 10.7 g/dL (12.0-16.0); Mean Corp Hgb Conc. 33.5 g/dL (33.0-37.0); Mean Corpuscular Volume 84.6 fL (81.0-99.0); Nucleated Red Blood Cells % 0 %; Platelet Count 315 10^3/uL (130-400); Red Cell Dist. Width 13.4 % (11.5-14.5); Urine Character Cloudy (Clear)
[2025-07-27 10:10] LABS: INR 1.21; PT 15.8 Sec (11.4-14.6)
[2025-07-27] MEDS: NSS 1000 IV ×2 (10:10→16:14)
[2025-07-27 10:11] LABS: APTT 38.1 Sec (23.4-35.0)
[2025-07-27 10:27] LABS: ALT (SGPT) 28 U/L (0-35); AST (SGOT) 32 U/L (14-36); Albumin 3.8 g/dl (3.5-5.0); Alkaline Phosphatase 75 U/L (38-126); Blood Urea Nitrogen 32 mg/dl (7-17); Calcium 8.4 mg/dl (8.4-10.2); Carbon Dioxide 25 mmol/L (22-30); Chloride 98 mmol/L (98-107); Glucose 124 mg/dl (70-99); Lipase < 10 U/L (23-300); Magnesium 2.3 mg/dl (1.6-2.3); Potassium 3.1 mmol/L (3.5-5.1); Sodium 132 mmol/L (135-145); Total Protein 6.6 g/dl (6.3-8.2); eGFR 26.48
[2025-07-27 10:37] LABS: Urine White Cell >100 /HPF (0-5)
[2025-07-27 10:53] LABS: Ammonia < 9 umol/L (9-30)
[2025-07-27] MEDS: ROCEPHIN 1000 MG IV (11:00)
--- NOTE | 2025-07-27 11:07 | HPS.HSE ---
Family Physician
-
Family Physician: Felipe Wilhelm,
Chief Complaint
-
Nausea/headache/intermittent diarrhea
History of Present Illness
49F Bipolar Neuropathy Renal Transplant Oct 20[facility] here for 1 week nausea/appetite loss/intermittent diarrhea/persistent headache. Patient also endorses 'haziness'/confusion and dizziness with stand ambulation. Able to ambulate without assist
device though. Denies falls, blood in diarrhea, vomiting. Patient was evaluated and PCP office then referred to ED d/t hypotension 80s/40s since resolved. Mild Leukocytosis w/ associate tachycardia concerning for possible sepsis due to UTI.
Urinalysis notes pyuria but patient denies denies dysuria. Patient also noted that her urine had been cloudy on/off for most of her life. Labs also concerning for ANKUR Cr 2.2 (baseline 1.0). Renal US unremarkable.
Medical History
Past Medical History
Past Medical History: Reports Other (as above)
Past Surgical History: Reports Other (as above)
Social History
Tobacco: Former Smoker
Alcohol: None
Drug: Marijuana
Personal:
Living: With Family
Family History
Family History: Not pertinent (reviewed)
Allergies / Home Medications
Allergies reflects when Allergies were last updated in [employer].
Home Medications with original date entered in [employer]
Allergy/Medication List:
Allergies
Allergy/AdvReac Type Severity Reaction Status Date / Time
bupropion (From Wellbutrin) Allergy Unknown Verified 07/27/25 08:41
NSAIDS (Non-Steroidal Allergy Unknown Verified 07/27/25 08:41
Anti-Inflamma
Home Medications
gabapentin 300 mg capsule 300 mg PO BID Neurological Condition 11/30/20
quetiapine 100 mg tablet (Seroquel) 100 mg PO BID Mental Health/Anxiety 03/23/21
Medical Marijuana 1 dose PO DAILYPRN PRN anxiety/SLEEP 07/12/22
omeprazole 20 mg capsule,delayed release 20 mg PO HS Gastrointestinal Issue 07/12/22
atorvastatin 10 mg tablet (Lipitor) 10 mg PO DAILY High Cholesterol 04/30/24
magnesium chloride 64 mg (magnesium chloride) tablet 360 mg PO BID Supplement 04/30/24
quetiapine 50 mg tablet (Seroquel) 50 mg PO DAILYPRN PRN anxiety 04/30/24
cholecalciferol (vitamin D3) 25 mcg (1,000 unit) tablet (Vitamin D3) 25 mcg PO DAILY Supplement 07/27/25
lamotrigine 200 mg tablet (Lamictal) 200 mg PO DAILY 07/27/25
lorazepam 0.5 mg tablet 0.5 mg PO BIDPRN PRN anxiety 07/27/25
lorazepam 1 mg tablet 1 mg PO DAILY Mental Health/Anxiety 07/27/25
sirolimus 1 mg tablet 3 mg PO DAILY 07/27/25
Review of Systems
-
A 12 point ROS was completed and negative except as noted: Yes
Constitutional: Reports Other (as below)
Physical Exam
Vital Signs
Vital Signs
Temp Pulse Resp BP Pulse Ox
98.4 F 101 16 104/53 98
07/27/25 08:38 07/27/25 08:38 07/27/25 08:38 07/27/25 08:38 07/27/25 09:24
Physical Exam
General: Other (as below)
Laboratory Results
-
07/27/25 09:49
07/27/25 09:49
Laboratory Results
PT 15.8 Sec (11.4-14.6) H 07/27/25 09:49
INR 1.21 07/27/25 09:49
APTT 38.1 Sec (23.4-35.0) H 07/27/25 09:49
Lactic Acid 0.6 mmol/L (0.7-2.0) L 07/27/25 09:49
Total Bilirubin 0.3 mg/dl (0.2-1.3) 07/27/25 09:49
AST 32 U/L (14-36) 07/27/25 09:49
ALT 28 U/L (0-35) 07/27/25 09:49
Alkaline Phosphatase 75 U/L (38-126) 07/27/25 09:49
Lipase < 10 U/L (23-300) L 07/27/25 09:49
Impression/Plan
-
Physical Exam
General: No pallor, cyanosis, or jaundice.
HEENT: Throat clear. PERRLA Normocephalic atraumatic
NECK: Supple. No JVD Carotid Bruits
RESPIRATORY: Lungs clear to auscultation. No crackles wheezes stridor
CVS: S1, S2 normal. RRR. No murmur, rub or gallop.
ABDOMEN: Soft, non-tender. No distension. BS+/normal.
EXTREMITIES: No peripheral cyanosis or edema.
SALES AMBASSADOR: AOx3. Conversant coherent no photophobia nuchal rigidity, strength 5/5 all ext's
Psych: Calm
IMPRESSION:
49F Bipolar Neuropathy Renal Transplant Oct [facility] here for 1 week nausea/appetite loss/intermittent diarrhea/persistent headache. Patient also endorses 'haziness'/confusion and dizziness with stand ambulation. Able to ambulate without assist
device though. Denies falls, blood in diarrhea, vomiting. Patient was evaluated and PCP office then referred to ED d/t hypotension 80s/40s since resolved. Mild Leukocytosis w/ associate tachycardia concerning for possible sepsis due to UTI.
Urinalysis notes pyuria but patient denies denies dysuria. Patient also noted that her urine had been cloudy on/off for most of her life. Labs also concerning for ANKUR Cr 2.2 (baseline 1.0). Renal US unremarkable.
PLAN:
#Possible Sepsis 2/2 UTI
#Nausea/intermittent diarrhea
Tele Admit
BP stable s/p 1L IVF NS bolus in ED
no lactic acidosis
cont Ceftriaxone for now
follow blood/urine cx's
trend WBC, monitor temp
stool studies if diarrhea (last episode day prior to presentation)
#ANKUR
#Right Renal Transplant
Cr 2.2 (baseline 1.0
monitor renal function
trial IVF gentle hydration NS 70 cc/h
cont home Sirolimus
Nephro Eval
#Hypokalemia
monitor and replete as necessary
#Mild Hyponatremia
Monitor
#Persistent Headache unclear etiology, 1 wk duration
#Dizziness/confusion
Possible Acute Metabolic Encephalopathy 2/2 infection as above
Tylenol prn
check CT head
#Bipolar/Anxiety
cont home Lamictal Seroquel Ativan
Full Code
DVT ppx SCD
Discussed with patient and patient's Rich
I spent a total of 80 minutes with the patient or on the floor. More than 50% of this time involved counseling and coordination of care.
[2025-07-27] MEDS: TYLENOL 1000 MG PO (12:47)
--- NOTE | 2025-07-27 13:26 | CM ---
Chart reviewed. Spoke with patient and Fei at ED bedside
hx of kidney transplant in 10/2023 at [facility]
Lives in a multilevel home with spouse 3 [place]
Independent with ADLs
no DME
is supportive.
No local family but has lots of friends here
PCP Felipe Wilson
RX plan yes
Pharmacy [facility] in [place]
no hx of VN nor SNF
DCP is to return home
can provide transportation
CM will continue to follow up for any dcp needs
--- NOTE | 2025-07-27 14:13 | W.CON.NEPH ---
Consultation
-
Date/Time Consultation Requested: 07/27/2025 2:00 PM
Date/Time Consultation Performed: 07/27/2025 2:00 PM
Requesting Provider: Dr. Hernandez
Performing Provider: Dr. Duncan
Reason for Consultation: ANKUR/renal transplant
Medical History
-
Chief Complaint: ANKUR/renal transplant
History of Present Illness:
The patient is a 49-year-old female with a past medical history of renal transplant in October 2023 who is overseen by our practice for her renal care. She is maintained on tacrolimus and sirolimus for her transplant care. She presented to the
hospital after 1 week history of nausea diarrhea appetite loss and persistent headache. She also stated she had some confusion and disorientation with standing. When she presented to the hospital after being referred by her primary care doctor her
systolic blood pressures were in the 80s. She was in acute kidney injury with her creatinine off of her baseline of 1 up to 2.2 and nephrology was consulted.
Past Medical History
Renal transplant at [facility] October 2023 living donor
History of anorexia and eating disorder
History of diuretic
Anxiety
Recurrent transplant UTI
History of hyperparathyroidism
Previous ESRD secondary to advanced global and segmental glomerular sclerosis by renal biopsy
History of right hepatic vein thrombus
History of squamous and basal cell skin carcinoma
Social History
Tobacco: Former Smoker
Family History
no ckd
Allergies / Home Medications
Allergy/AdvReac Type Severity Reaction Status Date / Time
bupropion (From Wellbutrin) Allergy Unknown Verified 07/27/25 08:41
NSAIDS (Non-Steroidal Allergy Unknown Verified 07/27/25 08:41
Anti-Inflamma
�Medication �Instructions �Recorded �Confirmed �Type
gabapentin 300 mg capsule 300 mg PO BID Neurological 11/30/20 07/27/25 History
Condition
quetiapine 100 mg tablet (Seroquel) 100 mg PO BID Mental Health/Anxiety 03/23/21 07/27/25 History
Medical Marijuana 1 dose PO DAILYPRN PRN 07/12/22 07/27/25 History
anxiety/SLEEP
omeprazole 20 mg capsule,delayed 20 mg PO HS Gastrointestinal Issue 07/12/22 07/27/25 History
release
atorvastatin 10 mg tablet (Lipitor) 10 mg PO DAILY High Cholesterol 04/30/24 07/27/25 History
magnesium chloride 64 mg 360 mg PO BID Supplement 04/30/24 07/27/25 History
(magnesium chloride) tablet
quetiapine 50 mg tablet (Seroquel) 50 mg PO DAILYPRN PRN anxiety 04/30/24 07/27/25 History
cholecalciferol (vitamin D3) 25 25 mcg PO DAILY Supplement 07/27/25 07/27/25 History
mcg (1,000 unit) tablet (Vitamin
D3)
lamotrigine 200 mg tablet 200 mg PO DAILY 07/27/25 07/27/25 History
(Lamictal)
lorazepam 0.5 mg tablet 0.5 mg PO BIDPRN PRN anxiety 07/27/25 07/27/25 History
lorazepam 1 mg tablet 1 mg PO DAILY Mental Health/Anxiety 07/27/25 07/27/25 History
sirolimus 1 mg tablet 3 mg PO DAILY 07/27/25 07/27/25 History
Review of Systems
-
History Source: Patient
All other systems: Negative unless noted
Physical Exam
Vital Signs
Vital Signs
Temp Pulse Resp BP Pulse Ox
98.4 F 101 16 104/53 98
07/27/25 08:38 07/27/25 08:38 07/27/25 08:38 07/27/25 08:38 07/27/25 09:24
Lab Results
07/27/25 09:49
07/27/25 09:49
WBC 12.4 10^3/uL (4.8-10.8) H 07/27/25 09:49
RBC 3.77 10^6/uL (4.20-5.40) L 07/27/25 09:49
Hgb 10.7 g/dL (12.0-16.0) L 07/27/25 09:49
Hct 31.9 % (37.0-47.0) L 07/27/25 09:49
Plt Count 315 10^3/uL (130-400) 07/27/25 09:49
Sodium 132 mmol/L (135-145) L 07/27/25 09:49
Potassium 3.1 mmol/L (3.5-5.1) L 07/27/25 09:49
Chloride 98 mmol/L (98-107) 07/27/25 09:49
Carbon Dioxide 25 mmol/L (22-30) 07/27/25 09:49
BUN 32 mg/dl (7-17) H 07/27/25 09:49
Creatinine 2.2 mg/dL (0.6-1.0) H 07/27/25 09:49
eGFR 26.48 07/27/25 09:49
Glucose 124 mg/dl (70-99) H 07/27/25 09:49
Calcium 8.4 mg/dl (8.4-10.2) 07/27/25 09:49
Albumin 3.8 g/dl (3.5-5.0) 07/27/25 09:49
Physical Exam
General: AOx3, Nontoxic , NAD,
HEENT: PERRL, EOMI, Anicteric, Conjunctivae Clear, Ear/Nose Intact, Hearing Normal, Oropharynx Clear/Moist, Dentition Intact, Facial Symmetry, Neck Supple, Neck: Trachea Midline, No JVD and No Thyromegaly, no Bruits
Respiratory: Clear to auscultation bilaterally with normal lung exersion
Cardiac: S1/S2 and Regular Rate/Rhythm
Breast: Deferred by me
Abdomen: Soft, Nondistended, Normal Bowel Sounds and No Hepatosplenomegaly, right lower quadrant kidney graft, some palpable tenderness
Rectal: Deferred by Provider
Genito-urinary: No Costovertebral Tenderness
Extremities: No Clubbing, No Cyanosis and No Edema
Skin: No Rash or open lesions
Neuro: Nonfocal/Grossly Intact, CN II-XII (Intact) and Strength (Musculoskeletal exam 5 out of 5 both upper and lower extremities)
Hematologic/Lymphatic: No Cervical Lymphadenopathy, No Submandibular Lymphadenopathy and No Supraclavicular Lymphadenopathy
Psych: Mood/afflect pleasant, Insight/judgement good and Appropriate
Vascular: plus 2 pedal and radial pulses
Data Reviewed
-
CT Scan: Report Reviewed by me (CT of head without acute finding)
Ultrasound: Report Reviewed by me (Renal ultrasound report reviewed showed no evidence of hydronephrosis or pyelonephritis within renal transplant )
Labs: Labs Reviewed by me (BMP CBC)
Old Records: Reviewed (Reviewed old lab work in the electronic medical record from our office notes from 03/11/2025 creatinine 0.86)
Assessment/Plan
-
Impression:
Presentation with nausea decreased p.o. intake hypotension, diarrhea,dizzyness, leukocytosis
ANKUR (2.2)
History of living unrelated renal transplant at [facility] October 2023 with baseline creatinine of 0.86 as of March 2025
History of eating disorder
Hypokalemia
History of anxiety
History of bipolar disease
History of dyslipidemia
Chronic hypotension with baseline systolics around 100
Plan:
ANKUR/Renal Tx:
- Suspected due to prerenal etiology given profound hypotension with systolic in the 80s on presentation
- Possibly due to underlying GI process and/or infection, renal ultrasound does not reveal transplant pyelonephritis but she does have right lower quadrant abdominal discomfort with palpation
-If abdominal pain exacerbates I would follow-up with a non-IV contrast CT of abdomen and
- Provide isotonic saline for volume resuscitation and hemodynamic instability
- Would also obtain tacrolimus and sirolimus trough levels in a.m.
- Transplant ultrasound reviewed without evidence of hydronephrosis or acute process
- Ceftriaxone dose reviewed and acceptable for renal compromise, blood and urine cultures pending
- Replete potassium in setting of hypokalemia, check magnesium level
- Hyponatremia likely a function of decreased mean arterial perfusion pressure and should improve with hemodynamic stability
[2025-07-27] MEDS: KCL 40 MEQ PO (14:22)
[2025-07-27 15:39] VITALS: BP 91/55; BMI 17.3
--- NOTE | 2025-07-27 16:03 | PTOTSP ---
Chart reviewed, discussed with RN and patient. Patient denies the need for PT evaluation, confirming she is independent with mobility and denies changes in her mobility. Patient is aware our services are available if needed. PT will sign off at this
time.
--- NOTE | 2025-07-27 18:44 | PTCARENOTE ---
Patient arrived from ED, via stretcher. Independently ambulated from stretcher to bed. NSS running at 80 ml /hr. VSS. Patent complaining of mild, generalized headache--11/08. Patient now being moved to private room due to ordered C diff and norovirus
stool panels. Dual skin check completed---skin is clean, dry, intact. Patient oriented to room. Call ramos and personal belongings within reach.
[2025-07-27 19:00] VITALS: BP 108/65
[2025-07-27] MEDS: NEURONTIN 300 MG PO (20:00)
[2025-07-27] MEDS: SEROQUEL 100 MG PO (20:00)
[2025-07-27] MEDS: PROTONIX 40 MG PO (20:02)
[2025-07-27] MEDS: TYLENOL 650 MG PO (20:17)
--- NOTE | 2025-07-27 20:50 | PTCARENOTE ---
Pt states she has 'non-functioning' AV fistula in L upper arm. Thrill appreciated but no bruit. Pt's IVF's infusing through LFA IV site. IV team made aware to check if L arm should be limb alert. IV team up to see pt, states she attempted x 2
without success to start IV on RUE and will defer until AM.
--- NOTE | 2025-07-27 21:06 | VATNOTE ---
PT WITH NON FUNCTIONING LUE FISTULA. PT NOTED TO HAVE AN IV ACCESS IN LUE. ATTEMPTED X2 TO ESTABLISH IV IN RUE W/O SUCCESS. PT STATES SHE HAS HAD IV SITES IN LUE ON PREVIOUS ADMISSIONS. WILL ASK PROVIDER TO CLARIFY IN AM.
[2025-07-27 23:10] VITALS: BP 82/45
[2025-07-28 03:06] VITALS: BP 114/61
[2025-07-28] MEDS: TYLENOL 650 MG PO ×3 (04:41→23:48)
[2025-07-28] MEDS: NSS 1000 IV ×2 (04:41→15:28)
[2025-07-28 06:00] VITALS: BMI 18.1
[2025-07-28 06:11] LABS: Hematocrit 27.3 % (37.0-47.0); Hemoglobin 9.1 g/dL (12.0-16.0); Mean Corp Hgb Conc. 33.3 g/dL (33.0-37.0); Mean Corpuscular Volume 84.5 fL (81.0-99.0); Platelet Count 334 10^3/uL (130-400); Red Cell Dist. Width 13.5 % (11.5-14.5)
[2025-07-28 06:56] LABS: Blood Urea Nitrogen 31 mg/dl (7-17); Calcium 8.3 mg/dl (8.4-10.2); Carbon Dioxide 19 mmol/L (22-30); Chloride 107 mmol/L (98-107); Estimated Creatinine Clearance 19 ml/min; Glucose 158 mg/dl (70-99); Magnesium 2.1 mg/dl (1.6-2.3); Potassium 3.9 mmol/L (3.5-5.1); Sodium 131 mmol/L (135-145); eGFR 23.85
[2025-07-28 07:00] VITALS: BP 96/53
[2025-07-28] MEDS: RAPAMUNE 3 MG PO (08:03)
[2025-07-28] MEDS: LIPITOR 10 MG PO (08:04)
[2025-07-28] MEDS: LAMICTAL 200 MG PO (08:04)
[2025-07-28] MEDS: VITAMIN D3 (cholecalciferol) 25 MCG PO (08:04)
[2025-07-28] MEDS: SEROQUEL 100 MG PO ×2 (08:04→19:34)
[2025-07-28] MEDS: ATIVAN 1 MG PO (08:04)
[2025-07-28] MEDS: NEURONTIN 300 MG PO ×2 (08:04→19:34)
--- NOTE | 2025-07-28 08:10 | W.PN.HOSP.TC ---
Today's Communication/Plan
-
IVF support
neutraphos
monitor renal function
cont abx
follow cx's
Tylenol prn
Assessment / Plan
Assessment / Plan
Physical Exam
General: No pallor, cyanosis, or jaundice.
HEENT: Throat clear. PERRLA Normocephalic atraumatic
NECK: Supple. No JVD Carotid Bruits
RESPIRATORY: Lungs clear to auscultation. No crackles wheezes stridor
CVS: S1, S2 normal. RRR. No murmur, rub or gallop.
ABDOMEN: Soft, non-tender. No distension. BS+/normal.
EXTREMITIES: No peripheral cyanosis or edema.
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 Conversant coherent no photophobia nuchal rigidity, strength 5/5 all ext's
Psych: Calm
IMPRESSION:
49F Bipolar Neuropathy Renal Transplant Oct 2023 [place] here for 1 week nausea/appetite loss/intermittent diarrhea/persistent headache. Patient also endorses 'haziness'/confusion and dizziness with stand ambulation. Able to ambulate without assist
device though. Denies falls, blood in diarrhea, vomiting. Patient was evaluated and PCP office then referred to ED d/t hypotension 80s/40s since resolved. Mild Leukocytosis w/ associate tachycardia concerning for possible sepsis due to UTI.
Urinalysis notes pyuria but patient denies denies dysuria. Patient also noted that her urine had been cloudy on/off for most of her life. Labs also concerning for ANKUR Cr 2.2 (baseline 1.0). Renal US unremarkable.
PLAN:
#Possible Sepsis 2/2 UTI
#Nausea/intermittent diarrhea
Tele Admit
BP stable s/p 1L IVF NS bolus in ED
no lactic acidosis
cont Ceftriaxone for now
follow blood cx's NGTD
Urine cx prelim pos gram neg bacilli
trend WBC, monitor temp
Cdiff antigen pos but toxin neg, suspect benign colonization given lack of persistence diarrhea
#ANKUR
#Right Renal Transplant
Cr 2.2 (baseline 1.0)
monitor renal function
trial IVF gentle hydration NS 70 cc/h
cont home Sirolimus
Nephro Eval appreciated
#Hypokalemia
#Hypophosphatemia
monitor and replete as necessary
#Mild Hyponatremia
Monitor
#Persistent Headache unclear etiology, 1 wk duration
#Dizziness/confusion
Possible Acute Metabolic Encephalopathy 2/2 infection as above
Tylenol prn
CT head appreciated no acute abn's
#Bipolar/Anxiety
cont home Lamictal Seroquel Ativan
Full Code
DVT ppx SCD
I spent a total of 45 minutes with the patient or on the floor. More than 50% of this time involved counseling and coordination of care.
Anticipated Discharge: 24 - 48 hours
Subjective/Interval History
-
Date of Service: July 28, 2025
Seen and examined at bedside in no acute distress resting comfortably in bed. Headache persists, tolerating diet
Objective Data
-
Labs:
Laboratory Results
07/28/25
05:30
WBC 10.6
Hgb 9.1 L
Hct 27.3 L
Plt Count 334
Sodium 131 L
Potassium 3.9 D
Chloride 107
Carbon Dioxide 19 L
BUN 31 H
Creatinine 2.4 H
Glucose 158 H
Calcium 8.3 L
Vital Signs:
Vital Signs
Temp Pulse Resp BP Pulse Ox
98.9 F 95 12 96/53 100
07/28/25 07:00 07/28/25 07:00 07/28/25 07:00 07/28/25 07:00 07/28/25 07:00
I&O
07/27/25 07/28/25 07/29/25
06:59 06:59 06:59
Intake Total 960 / 960
Balance 960 / 960
[2025-07-28 11:00] VITALS: BP 119/69
--- NOTE | 2025-07-28 11:26 | W.PN.NEPH.PH ---
Today's Communication / Plan
-
IVF
Assessment/Plan
-
Impression:
Presentation with nausea decreased p.o. intake hypotension, diarrhea,dizzyness, leukocytosis
ANKUR (2.2)
History of living unrelated renal transplant at [facility] October 2023 with baseline creatinine of 0.86 as of March 2025
History of eating disorder
Hypokalemia
History of anxiety
History of bipolar disease
History of dyslipidemia
Chronic hypotension with baseline systolics around 100
Plan:
await RPA/FK levels
follow BMP
abx for GNR coverage
await final BCx/UCX
continue IVF
-
-
Date of Service: July 28, 2025
CC / HPI / ROS
-
Chief Complaint:
ANKUR
History of Present Illness:
ANKUR/Cr worse at 2.4
on abx for urosepsis
BP low
Phos low
Review of Systems:
no CP/SOB
appetite improving
Labs
-
Labs:
WBC 10.6 10^3/uL (4.8-10.8) 07/28/25 05:30
RBC 3.23 10^6/uL (4.20-5.40) L 07/28/25 05:30
Hgb 9.1 g/dL (12.0-16.0) L 07/28/25 05:30
Hct 27.3 % (37.0-47.0) L 07/28/25 05:30
Plt Count 334 10^3/uL (130-400) 07/28/25 05:30
Sodium 131 mmol/L (135-145) L 07/28/25 05:30
Potassium 3.9 mmol/L (3.5-5.1) D 07/28/25 05:30
Chloride 107 mmol/L (98-107) 07/28/25 05:30
Carbon Dioxide 19 mmol/L (22-30) L 07/28/25 05:30
BUN 31 mg/dl (7-17) H 07/28/25 05:30
Creatinine 2.4 mg/dL (0.6-1.0) H 07/28/25 05:30
eGFR 23.85 07/28/25 05:30
Glucose 158 mg/dl (70-99) H 07/28/25 05:30
Calcium 8.3 mg/dl (8.4-10.2) L 07/28/25 05:30
Phosphorus 2.0 mg/dl (2.5-4.5) L 07/28/25 05:30
Albumin 3.8 g/dl (3.5-5.0) 07/27/25 09:49
Physical Exam
-
Vital Signs:
Vital Signs
Temp Pulse Resp BP Pulse Ox
98.7 F 90 16 119/69 100
07/28/25 11:00 07/28/25 11:00 07/28/25 11:00 07/28/25 11:00 07/28/25 11:00
Cardiovascular:: Regular rate and rhythm
Respiratory:: Bilateral: CTA
Lung Excursion:: Normal
Abdomen:: Nontender and Soft
Bowel Sounds:: Normal
Extremity Edema:: None: Bilateral:
[2025-07-28] MEDS: ROCEPHIN 2000 MG IV (11:54)
[2025-07-28] MEDS: STERILE WATER FOR INJECTION 20 ML IV (11:55)
[2025-07-28 15:00] VITALS: BP 133/80
[2025-07-28] MEDS: NEUTRA-PHOS POWDER PACKET 250 MG PO ×2 (17:17→22:08)
[2025-07-28] MEDS: PROTONIX 40 MG PO (19:35)
[2025-07-28 20:25] VITALS: BP 118/67
[2025-07-28 23:25] VITALS: BP 113/61
[2025-07-29 02:54] VITALS: BP 106/53
[2025-07-29 06:12] VITALS: BMI 18.1
[2025-07-29 07:20] LABS: Hematocrit 26.1 % (37.0-47.0); Hemoglobin 8.6 g/dL (12.0-16.0); Mean Corp Hgb Conc. 33.0 g/dL (33.0-37.0); Mean Corpuscular Volume 83.1 fL (81.0-99.0); Platelet Count 379 10^3/uL (130-400); Red Cell Dist. Width 13.8 % (11.5-14.5)
[2025-07-29 07:25] VITALS: BP 115/61
--- NOTE | 2025-07-29 07:48 | W.PN.HOSP.TC ---
Today's Communication/Plan
-
Ceftriaxone switched to cefazolin based on sensitivity results urine Cx Klebsiella
ID eval requested
Hematology Eval requested
IVF completed monitor renal function off
Assessment / Plan
Assessment / Plan
Physical Exam
General: No pallor, cyanosis, or jaundice.
HEENT: Throat clear. PERRLA Normocephalic atraumatic
NECK: Supple. No JVD Carotid Bruits
RESPIRATORY: Lungs clear to auscultation. No crackles wheezes stridor
CVS: S1, S2 normal. RRR. No murmur, rub or gallop.
ABDOMEN: Soft, non-tender. No distension. BS+/normal.
EXTREMITIES: No peripheral cyanosis or edema.
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 Conversant coherent no photophobia nuchal rigidity, strength 5/5 all ext's
Psych: Calm
IMPRESSION:
49F Bipolar Neuropathy Renal Transplant Oct 2023 [place] here for 1 week nausea/appetite loss/intermittent diarrhea/persistent headache. Patient also endorses 'haziness'/confusion and dizziness with stand ambulation. Able to ambulate without assist
device though. Denies falls, blood in diarrhea, vomiting. Patient was evaluated and PCP office then referred to ED d/t hypotension 80s/40s since resolved. Mild Leukocytosis w/ associate tachycardia concerning for possible sepsis due to UTI.
Urinalysis notes pyuria but patient denies denies dysuria. Patient also noted that her urine had been cloudy on/off for most of her life. Labs also concerning for ANKUR Cr 2.2 (baseline 1.0). Renal US unremarkable.
PLAN:
#Possible Sepsis 2/2 UTI causing ANKUR as below
#Nausea/intermittent diarrhea
Tele Admit
BP stable s/p 1L IVF NS bolus in ED
no lactic acidosis
blood cx's pos gram neg bacilli
Urine cx Klebsiella sensitivity appreciated
Ceftriaxone switched to cefazolin based on above sensitivity results
ID eval requested
trend WBC, monitor temp
Cdiff antigen pos but toxin neg, suspect benign colonization given lack of persistence diarrhea
#ANKUR
#Right Renal Transplant
Cr 2.2 (baseline 1.0) since significantly improved
monitor renal function
trial IVF gentle hydration NS 70 cc/h completed
cont home Sirolimus and Envarsus
Nephro Eval appreciated
#Progressive Anemia with Associated Iron Def
#Anemia of Chronic Disease
Hematology eval requested
#Hypokalemia
#Hypophosphatemia
monitor and replete as necessary
#Mild Hyponatremia
Monitor
#Persistent Headache unclear etiology, 1 wk duration
#Dizziness/confusion
Possible Acute Metabolic Encephalopathy 2/2 infection as above
Tylenol prn
CT head appreciated no acute abn's
headache since improved/resolved
#Bipolar/Anxiety
cont home Lamictal Seroquel Ativan
Full Code
DVT ppx SCD
I spent a total of 45 minutes with the patient or on the floor. More than 50% of this time involved counseling and coordination of care.
Anticipated Discharge: 24 - 48 hours
Subjective/Interval History
-
Date of Service: July 29, 2025
No acute distress resting comfortably in bed. Overall reports feeling well. Headache improved/resolved. Ambulatory without need for assist device
Objective Data
-
Labs:
Laboratory Results
07/29/25
07:01
WBC 9.2
Hgb 8.6 L
Hct 26.1 L
Plt Count 379
Sodium Pending
Potassium Pending
Chloride Pending
Carbon Dioxide Pending
BUN Pending
Creatinine Pending
Glucose Pending
Calcium Pending
Vital Signs:
Vital Signs
Temp Pulse Resp BP Pulse Ox
100.3 F 85 16 106/53 96
07/29/25 02:54 07/29/25 02:54 07/29/25 02:54 07/29/25 02:54 07/29/25 02:54
I&O
07/28/25 07/29/25 07/30/25
06:59 06:59 06:59
Intake Total 960 / 960
Balance 960 / 960
[2025-07-29 07:54] LABS: Blood Urea Nitrogen 18 mg/dl (7-17); Calcium 8.0 mg/dl (8.4-10.2); Carbon Dioxide 18 mmol/L (22-30); Chloride 110 mmol/L (98-107); Estimated Creatinine Clearance 35 ml/min; Glucose 115 mg/dl (70-99); Magnesium 1.8 mg/dl (1.6-2.3); Potassium 4.0 mmol/L (3.5-5.1); Sodium 134 mmol/L (135-145); eGFR 45.55
[2025-07-29] MEDS: RAPAMUNE 3 MG PO (09:08)
[2025-07-29] MEDS: ATIVAN 1 MG PO (09:08)
[2025-07-29] MEDS: SEROQUEL 100 MG PO ×2 (09:08→20:00)
[2025-07-29] MEDS: VITAMIN D3 (cholecalciferol) 25 MCG PO (09:08)
[2025-07-29] MEDS: LIPITOR 10 MG PO (09:09)
[2025-07-29] MEDS: NEURONTIN 300 MG PO ×2 (09:09→20:00)
[2025-07-29] MEDS: LAMICTAL 200 MG PO (09:09)
[2025-07-29] MEDS: NEUTRA-PHOS POWDER PACKET 250 MG PO ×4 (09:13→21:00)
--- NOTE | 2025-07-29 09:14 | CON.ID ---
Consultation
-
Date/Time Consultation Requested: 07/29/25 8:24
Date/Time Consultation Performed: 07/29/25 9:14
Requesting Provider: Dr Hernandez
Performing Provider: Dr Peters
Reason for Consultation: bacteremia immunocompromised sirolimus transplant recipient
Chief Complaint / Past History
Chief Complaint
Nausea/headache/intermittent diarrhea
History of Present Illness
Ms Mejia is a 49 year old female with history notable for living unrelated renal transplant 10/2023 (Sirolimus 3 mg qday, tacrolimus 1 and 4 mg, Cr baseline 0.86), bipolar disorder who presented here 07/27, two days ago for one week of headache,
nausea, intermittent diarrhea (loose vs liquid stools), appetite loss and confusion. She has noted some tenderness over the transplant beginning the day of arrival, no dysuria, urgency or frequency however. Reports urine is always cloudy. Also
dizziness with standing. He was seen by his PCP who noted BP 80s/40 and referred her to the ER. She has had several UTIs since her transplant.
Since arrival here tmax has been 102.9 yesterday, she was initially afebrile over 24 hours, bp was initially stable and borderline hypotensive around the time of the fever now stabilized, wbc initially 12 now 9.2, hgb 8.6, plt 379, L shift present
on arrival, cr on arrival 2.2 now 1.4, na 134, lactic acid 0.6, UA >100 wbc/hpf, 07/27 renal US: transplant without calculus or hydronephrosis, 07/27 CT head w/o contrast: no acute abnormality, urine culture 100K K pneumoniae, 1 of two sets of
blood cultures also with GNR, stool culture pending, C diff ag positive, toxin negative, norovius negative, she was initially started on ceftiraxone and with culture results today was changed to cefazolin. Since arrival she reports that the
headache is ongoing, nausea much less, appetite is back.
Past History
Additional Past Medical History:
Renal transplant at [place] October 2023 living donor
History of anorexia and eating disorder
History of diuretic
Anxiety
Recurrent transplant UTI
History of hyperparathyroidism
Previous ESRD secondary to advanced global and segmental glomerular sclerosis by renal biopsy
History of right hepatic vein thrombus
History of squamous and basal cell skin carcinoma
Additional Past Surgical History:
as per hpi
Allergy History:
bupropion (From Wellbutrin) Allergy (Verified 07/27/25 08:41)
Unknown
NSAIDS (Non-Steroidal Anti-Inflamma Allergy (Verified 07/27/25 08:41)
Unknown
Medications Reviewed: Yes
Social History
Tobacco: Former Smoker
Alcohol: None
Drug: Marijuana
Family History
Family History: Not Pertinent
Review of Systems
Vital Signs
Temp Pulse Resp BP Pulse Ox
100.3 F 85 16 106/53 96
07/29/25 02:54 07/29/25 02:54 07/29/25 02:54 07/29/25 02:54 07/29/25 02:54
Physical Exam
Physical Exam
Constitutional: No Acute Distress
Cardiovascular: Regular Rate and S1/S2; Negative Murmur or Rub
Pulmonary: Clear and Symmetric; Negative Wheezes, Rales or Rhonchi
Gastrointestinal: Soft, Tender (over the RLQ transplant), Non Distended and Normal Bowel Sounds
Skin: Warm and Dry; Negative Rash or Jaundice
Lab / Diagnostic Study Results
07/29/25 07:01
07/29/25 07:01
Abs Immat Gran (auto) 0.1 10^3/uL (0-0.05) H 07/27/25 09:49
Absolute Neuts (auto) 10.3 10^3/uL (1.4-6.5) H 07/27/25 09:49
Absolute Lymphs (auto) 0.6 10^3/uL (1.2-3.4) L 07/27/25 09:49
Absolute Monos (auto) 1.4 10^3/uL (0.1-0.6) H 07/27/25 09:49
Absolute Basos (auto) 0.0 10^3/uL (0-0.2) 07/27/25 09:49
Immature Gran % 0.9 % (0-0.5) H 07/27/25 09:49
Neutrophils % 82.8 % (42.2-75.2) H 07/27/25 09:49
Lymphocytes % 5.0 % (20.5-51.1) L 07/27/25 09:49
Monocytes % 10.9 % (1.7-9.3) H 07/27/25 09:49
Eosinophils % 0.2 % (0-6) 07/27/25 09:49
Basophils % 0.2 % (0-2) 07/27/25 09:49
PT 15.8 Sec (11.4-14.6) H 07/27/25 09:49
INR 1.21 07/27/25 09:49
Lactic Acid Cancelled 07/27/25 13:30
Ur Squamous Epith Cells Not Reportable 07/27/25 09:49
Microbiology Results
Micro:
07/27/25 09:49 Urine Culture - Final
Urine Klebsiella pneumoniae
07/27/25 10:59 Blood Culture - Preliminary
Blood/Venous Positive culture in progress
Gram Stain - Preliminary
07/28/25 11:51 C. difficile GDH Antigen & Toxins - Final
Feces/Stool C. difficile antigen positive, toxin negative.
Clostridium difficile present, but toxin not detected.
Patient may be a carrier, colonized with nontoxinogenic
strain or the level of toxin in sample is below detection
limits. This information should be used in conjunction with
the patient's clinical history.
Norovirus (PCR) - Final
Negative for Norovirus GI and GII.
07/28/25 11:51 Salmonella/Shigella Culture - Pending
Feces/Stool Campylobacter Culture - Pending
Shiga Toxin Test - Pending
07/27/25 10:59 Blood Culture - Preliminary
Blood/Venous No Growth in 24 hours- Final report to follow
Urine Culture Final 07/29/25-813
CC: Greater than 100,000 CFU/ML Klebsiella pneumoniae
Organism 1 Klebsiella pneumoniae
1. Klebsiella pneumoniae
M.I.C. RX
--------- ---
Amoxicillin/Potas. Clavulanate <=8/4 S
Ampicillin >16 R
Ampicillin/Sulbactam <=4/2 S
Aztreonam <=4 S
Cefazolin <=2 S
Ertapenem <=0.5 S
Ciprofloxacin <=0.25 S
Gentamicin <=2 S
Meropenem <=1 S
Nitrofurantoin-Urine Only >64 R
Piperacillin/Tazobactam <=8 S
Tetracycline <=4 S
Tobramycin <=2 S
Trimethoprim/Sulfamethoxazole <=2/38 S
Assessment / Plan
UTI due to K pneumoniae
Bacteremia secondary to UTI
Fever resolved
Renal Transplant 10/2023
Immunosuppression
Colonization with C diff
- no need to repeat blood cultures for gram negative with known source
- follow for ID of the GNR from the blood, suspect K pneumoniae
- continue cefazolin for present - follow renal function
- likely switch to oral antibiotics in the near future
Care Review
Plan reviewed with: Physician (Dr Kylah palmer)
[2025-07-29] MEDS: ANCEF 5 IV ×2 (09:17→17:27)
[2025-07-29 09:29] LABS: Iron < 20 ug/dl (37-170)
[2025-07-29 09:31] LABS: Total Iron Binding Capacity 159 ug/dl (265-497)
[2025-07-29 09:55] LABS: Ferritin 390.0 ng/ml (11.1-264.0)
[2025-07-29 10:26] LABS: Folate > 20.0 ng/ml (2.76-20); Vitamin B12 660 pg/ml (239-931)
[2025-07-29 11:20] VITALS: BP 116/60
[2025-07-29] MEDS: ENVARSUS XR 7 MG PO (11:55)
[2025-07-29] MEDS: STERILE WATER FOR INJECTION IV (12:08)
--- NOTE | 2025-07-29 12:12 | CON.ONC ---
Consultation
-
Date Consultation Requested: 07/29/25
Date Consultation Performed: 07/29/25
Requesting Provider: David
Performing Provider: Deepika
Reason for Consultation: Anemia with drop in hemoglobin
Impression
Impression
Mild anemia, worsened in setting of acute sepsis, which can cause hemophagocytosis due to Toll-like receptors
Klebsiella urinary infection and bacteremia
Kidney transplant, on immunosuppression
Plan
Plan
Her iron studies are difficult to interpret in the setting of an acute inflammatory process. However, she has had a trend towards a borderline microcytosis, suggesting possible iron deficiency. This can be monitored as an outpatient with repeat
iron studies in about 6 weeks. If she is found to be iron deficient, she would need a GI evaluation. However, in the setting of an acute bacteremia, I would not recommend IV iron.
The drop in her hemoglobin most likely represents mild hemophagocytosis due to Toll-like receptors that became activated in infection. This can be monitored. I would anticipate she should return to near normal hemoglobin values within the next
several weeks. However, I will check hemolysis parameters as well as a free light chain ratio.
Patient History
History of Present Illness
This 49-year-old woman was admitted with hypotension. This subsequently has been found to be due to Klebsiella urinary infection with bacteremia that has responded well to antibiotics. She did have some acute kidney injury which is improving as
well.
She has a history of kidney transplantation. She has been transfused in the past, in the setting of acute illnesses, never as an outpatient. She says she has been told at times that she is anemic. She denies any symptoms of GI or blood loss.
Her hemoglobin 1 year ago was 12, about 11 on admission here, and now down to 8.6. Iron studies are <20/159, with a ferritin of 390. B12 is normal.
Past-Medical/Surgical History
Renal transplant at [place] October 2023 living donor
History of anorexia and eating disorder
Anxiety
Recurrent transplant UTI
History of hyperparathyroidism
Previous ESRD secondary to advanced global and segmental glomerular sclerosis by renal biopsy
History of right hepatic vein thrombus
History of squamous and basal cell skin carcinoma
Social history: She has a remote history of possible alcoholism and eating disorder
Family history is noncontributory.
Patient Medication
�Medication �Instructions �Recorded �Confirmed �Last Taken �Type
gabapentin 300 mg capsule 300 mg PO BID Neurological 11/30/20 07/27/25 07/27/25 History
Condition
quetiapine 100 mg tablet (Seroquel) 100 mg PO BID Mental Health/Anxiety 03/23/21 07/27/25 07/27/25 History
Medical Marijuana 1 dose PO DAILYPRN PRN 07/12/22 07/27/25 05/02/24 13:00 History
anxiety/SLEEP
omeprazole 20 mg capsule,delayed 20 mg PO HS Gastrointestinal Issue 07/12/22 07/27/25 05/03/24 20:00 History
release
atorvastatin 10 mg tablet (Lipitor) 10 mg PO DAILY High Cholesterol 04/30/24 07/27/25 07/27/25 History
magnesium chloride 64 mg 360 mg PO BID Supplement 04/30/24 07/27/25 07/27/25 History
(magnesium chloride) tablet
quetiapine 50 mg tablet (Seroquel) 50 mg PO DAILYPRN PRN anxiety 04/30/24 07/27/25 05/03/24 08:00 History
cholecalciferol (vitamin D3) 25 25 mcg PO DAILY Supplement 07/27/25 07/27/25 07/27/25 History
mcg (1,000 unit) tablet (Vitamin
D3)
lamotrigine 200 mg tablet 200 mg PO DAILY 07/27/25 07/27/25 07/27/25 History
(Lamictal)
lorazepam 0.5 mg tablet 0.5 mg PO BIDPRN PRN anxiety 07/27/25 07/27/25 Unknown History
lorazepam 1 mg tablet 1 mg PO DAILY Mental Health/Anxiety 07/27/25 07/27/25 07/27/25 History
sirolimus 1 mg tablet 3 mg PO DAILY 07/27/25 07/27/25 07/27/25 History
tacrolimus 1 mg tablet,extended 7 mg PO DAILY 07/29/25 07/29/25 Unknown History
release 24 hr (Envarsus XR)
Active Medications
Generic Name Dose Route Start Last Admin
Trade Name Freq PRN Reason Stop Dose Admin
Acetaminophen 650 mg 07/27/25 17:00 07/28/25 23:48
Acetaminophen 325 Mg Tablet PO 08/24/25 16:59 650 mg
Q4HPRN PRN Administration
mild pain/MORA/temp> 100.4F
Atorvastatin Calcium 10 mg 07/28/25 08:00 07/29/25 09:09
Atorvastatin (Lipitor) 10 Mg Tablet PO 08/25/25 07:59 10 mg
DAILY MARGIE Administration
Bisacodyl 10 mg 07/27/25 15:33
Bisacodyl 10 Mg Rectal Suppository RECTAL 08/24/25 15:32
[id number] PRN
constipation
Cholecalciferol 25 mcg 07/28/25 08:00 07/29/25 09:08
Cholecalciferol (Vitamin D3) 25 Mcg Tablet (1,000 Units) PO 08/25/25 07:59 25 mcg
DAILY MARGIE Administration
Gabapentin 300 mg 07/27/25 20:00 07/29/25 09:09
Gabapentin 300 Mg Capsule PO 08/24/25 19:59 300 mg
BID MARGIE Administration
Sodium Chloride 1,000 mls @ 80 mls/hr 07/27/25 15:33 07/28/25 15:28
Nss IV 1,000 mls
[id number] MARGIE Administration
Cefazolin Sodium 1 gram in 5 mls @ 60 mls/hr 07/29/25 10:00 07/29/25 09:17
Ancef IV 5 mls
Q8H MARGIE Administration
Lamotrigine 200 mg 07/28/25 08:00 07/29/25 09:09
Lamotrigine 100 Mg Tablet PO 08/25/25 07:59 200 mg
DAILY MARGIE Administration
Lorazepam 0.5 mg 07/27/25 15:33
Lorazepam 0.5 Mg Tablet PO 08/24/25 15:32
BIDPRN PRN
anxiety
Lorazepam 1 mg 07/28/25 08:00 07/29/25 09:08
Lorazepam 1 Mg Tablet PO 08/25/25 07:59 1 mg
DAILY MARGIE Administration
Pantoprazole Sodium 40 mg 07/27/25 22:00 07/28/25 19:35
Pantoprazole 40 Mg Delayed Release Tablet PO 08/24/25 21:59 40 mg
HS MARGIE Administration
Polyethylene Glycol 17 grams 07/27/25 15:33
Polyethylene Glycol Powder 17 Grams Packet PO 08/24/25 15:32
DAILYPRN PRN
constipation
Potassium Phosphate 250 mg 07/28/25 18:00 07/29/25 09:13
Neutra-Phos Powder Concentrate (250 Mg) Packet PO 08/25/25 17:59 250 mg
PCHS MARGIE Administration
Quetiapine Fumarate 100 mg 07/27/25 20:00 07/29/25 09:08
Quetiapine 100 Mg Tablet PO 08/24/25 19:59 100 mg
BID MARGIE Administration
Quetiapine Fumarate 50 mg 07/27/25 16:07
Quetiapine 25 Mg Tablet PO 08/24/25 16:06
DAILYPRN PRN
anxiety
Senna/Docusate Sodium 1 tablet 07/27/25 15:33
Docusate W/Senna (Ana-Colace) Tablet PO 08/24/25 15:32
BIDPRN PRN
constipation
Sirolimus 3 mg 07/28/25 08:00 07/29/25 09:08
Sirolimus 0.5 Mg Tablet PO 08/25/25 07:59 3 mg
DAILY MARGIE Administration
Sodium Chloride 0 flush 07/27/25 14:00
Sodium Chloride 0.9% (Flush) Syringe IV 08/24/25 13:59
PER PROTOCOL MARGIE
Sterile Water 20 ml 07/28/25 12:00 07/28/25 11:55
Sterile Water For Injection 20 Ml Vial IV 08/25/25 11:59 20 ml
Q24H MARGIE Administration
Tacrolimus 7 mg 07/29/25 10:15
Tacrolimus 1 Mg Extended Release Tablet PO 08/26/25 10:14
DAILY MARGIE
Review of Systems
-
All Other Systems: Reviewed and Negative
Physical Exam
-
Physical examination shows the patient to be in no acute distress.
HEENT exam is unremarkable.
There are no palpable nodes.
Chest is clear.
The heart is regular with no murmur or gallop.
The abdomen is soft and nontender with no organomegaly or masses.
Extremities are unremarkable.
Neurologic is grossly intact.
Labs
Lab Results
WBC 9.2 10^3/uL (4.8-10.8) 07/29/25 07:01
RBC 3.14 10^6/uL (4.20-5.40) L 07/29/25 07:01
Hgb 8.6 g/dL (12.0-16.0) L 07/29/25 07:01
Hct 26.1 % (37.0-47.0) L 07/29/25 07:01
MCV 83.1 fL (81.0-99.0) 07/29/25 07:01
MCH 27.4 pg (27.0-31.0) 07/29/25 07:01
MCHC 33.0 g/dL (33.0-37.0) 07/29/25 07:01
RDW 13.8 % (11.5-14.5) 07/29/25 07:01
Plt Count 379 10^3/uL (130-400) 07/29/25 07:01
MPV 9.2 fL (7.4-10.4) 07/29/25 07:01
Abs Immat Gran (auto) 0.1 10^3/uL (0-0.05) H 07/27/25 09:49
Absolute Neuts (auto) 10.3 10^3/uL (1.4-6.5) H 07/27/25 09:49
Absolute Lymphs (auto) 0.6 10^3/uL (1.2-3.4) L 07/27/25 09:49
Absolute Monos (auto) 1.4 10^3/uL (0.1-0.6) H 07/27/25 09:49
Absolute Eos (auto) 0.0 10^3/uL (0-0.7) 07/27/25 09:49
Absolute Basos (auto) 0.0 10^3/uL (0-0.2) 07/27/25 09:49
Immature Gran % 0.9 % (0-0.5) H 07/27/25 09:49
Neutrophils % 82.8 % (42.2-75.2) H 07/27/25 09:49
Lymphocytes % 5.0 % (20.5-51.1) L 07/27/25 09:49
Monocytes % 10.9 % (1.7-9.3) H 07/27/25 09:49
Eosinophils % 0.2 % (0-6) 07/27/25 09:49
Basophils % 0.2 % (0-2) 07/27/25 09:49
Creatinine 1.4 mg/dL (0.6-1.0) H 07/29/25 07:01
Vital Signs
Vital Signs
Temp Pulse Resp BP Pulse Ox
98.2 F 78 16 116/60 97
07/29/25 11:20 07/29/25 11:20 07/29/25 11:20 07/29/25 11:20 07/29/25 11:20
[2025-07-29] MEDS: NSS IV (13:20)
[2025-07-29 13:33] VITALS: BMI 18.1
--- NOTE | 2025-07-29 14:07 | W.PN.NEPH.PH ---
Today's Communication / Plan
-
Stop IV fluids
Assessment/Plan
-
Impression:
Presentation with nausea decreased p.o. intake hypotension, diarrhea, dizziness, leukocytosis
ANKUR (2.2)
History of living unrelated renal transplant at [facility] October 2023 with baseline creatinine of 0.86 as of March 2025
History of eating disorder
Hypokalemia
History of anxiety
History of bipolar disease
History of dyslipidemia
Chronic hypotension with baseline systolics around 100
Plan:
await RPA/FK levels, per patient goal level would be sum of 6-8
follow BMP
abx for Klebsiella per ID
Stop IVF
She has been iron deficient. In an ideal scenario iron infusion would be used so that blood transfusion could be avoided in a transplant patient from 2023.
Can try oral iron in the near future though she understands that this offers far less iron than intravenous.
-
-
Date of Service: July 29, 2025
CC / HPI / ROS
-
Chief Complaint:
ANKUR
History of Present Illness:
ANKUR/Cr down to 1.4
on abx for urosepsis
BP improved
Phos up to 2.4
Remains anemic hemoglobin 8.6
Review of Systems:
no CP/SOB
appetite improving
Labs
-
Labs:
WBC 9.2 10^3/uL (4.8-10.8) 07/29/25 07:01
RBC 3.14 10^6/uL (4.20-5.40) L 07/29/25 07:01
Hgb 8.6 g/dL (12.0-16.0) L 07/29/25 07:01
Hct 26.1 % (37.0-47.0) L 07/29/25 07:01
Plt Count 379 10^3/uL (130-400) 07/29/25 07:01
Sodium 134 mmol/L (135-145) L 07/29/25 07:01
Potassium 4.0 mmol/L (3.5-5.1) 07/29/25 07:01
Chloride 110 mmol/L (98-107) H 07/29/25 07:01
Carbon Dioxide 18 mmol/L (22-30) L 07/29/25 07:01
BUN 18 mg/dl (7-17) H 07/29/25 07:01
Creatinine 1.4 mg/dL (0.6-1.0) H 07/29/25 07:01
eGFR 45.55 07/29/25 07:01
Glucose 115 mg/dl (70-99) H 07/29/25 07:01
Calcium 8.0 mg/dl (8.4-10.2) L 07/29/25 07:01
Phosphorus 2.4 mg/dl (2.5-4.5) L 07/29/25 07:01
Albumin 3.8 g/dl (3.5-5.0) 07/27/25 09:49
Physical Exam
-
Vital Signs:
Vital Signs
Temp Pulse Resp BP Pulse Ox
98.2 F 78 16 116/60 97
07/29/25 11:20 07/29/25 11:20 07/29/25 11:20 07/29/25 11:20 07/29/25 11:20
Cardiovascular:: Regular rate and rhythm
Respiratory:: Bilateral: CTA
Lung Excursion:: Normal
Abdomen:: Nontender and Soft
Bowel Sounds:: Normal
Extremity Edema:: None: Bilateral:
[2025-07-29 15:30] VITALS: BP 121/66
--- NOTE | 2025-07-29 16:19 | PN.CDI ---
CDI
- -
CDI:
Physician Documentation Request
Admit Date: 07/27/25 13:[address] Hernandez,
[facility] is using an adapted version of the 2016 Third International Consensus Definitions for Sepsis and Septic Shock (Sepsis-3) where sepsis is defined as life threatening organ dysfunction caused by a deregulated host response to infection.
Please reference the official [facility] Sepsis Recognition Tool for further information, which can be found on the Intranet under Infection Prevention.
Clinical Indicators:
H+P, 07/27
#Possible Sepsis 2/2 UTI
#ANKUR
#Right Renal Transplant
#...Cr 2.2 (baseline 1.0
#monitor renal function
#trial IVF gentle hydration NS 70 cc/h
PN, 07/28
#...Mild Leukocytosis w/ associate tachycardia concerning for possible sepsis due to UTI.
#...Labs also concerning for ANKUR Cr 2.2 (baseline 1.0).
#Possible Sepsis 2/2 UTI
#...BP stable s/p 1L IVF NS bolus in ED
#...no lactic acidosis
Based on your medical judgment, please review the documentation pertaining to Sepsis due to UTI and further clarify the clinical indicators and any organ dysfunction associated with the diagnosis, if applicable:
Sepsis ruled out, UTI only
Sepsis due to UTI with organ dysfunction of ANKUR
Other (please specify)
Clinically Unable to Determine
Use of terms such as suspected, likely, concern for, or probable (associated with a specific diagnosis that is being evaluated, monitored, or treated as if it exists) are acceptable and can be coded in the inpatient setting when documented at the
time of discharge.
Please use your independent medical judgement in providing your response.
Thank you,
Abbie Fried RN BSN CCDS
CDI Specialist
Please contact via tiger text
[2025-07-29 18:22] LABS: Tacrolimus (Prograft - FK506) 15.6 ng/mL
[2025-07-29] MEDS: PROTONIX 40 MG PO (20:00)
[2025-07-29] MEDS: TYLENOL 650 MG PO (21:01)
[2025-07-29 23:24] VITALS: BP 119/55
[2025-07-30] MEDS: ANCEF 5 IV ×2 (02:51→09:20)
[2025-07-30 03:21] VITALS: BP 136/71
[2025-07-30 03:27] VITALS: BMI 17.7
[2025-07-30 07:30] VITALS: BP 132/64
--- NOTE | 2025-07-30 07:37 | W.PN.HOSP.TC ---
Today's Communication/Plan
-
cont abx as per ID
Envarsus on hold as per discussion w/ transplant specialist, to be resumed tomorrow at reduced dose
Cont daily Sirolimus
Assessment / Plan
Assessment / Plan
Physical Exam
General: No pallor, cyanosis, or jaundice.
HEENT: Throat clear. PERRLA Normocephalic atraumatic
NECK: Supple. No JVD Carotid Bruits
RESPIRATORY: Lungs clear to auscultation. No crackles wheezes stridor
CVS: S1, S2 normal. RRR. No murmur, rub or gallop.
ABDOMEN: Soft, non-tender. No distension. BS+/normal.
EXTREMITIES: No peripheral cyanosis or edema.
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 Conversant coherent
Psych: Calm
IMPRESSION:
49F Bipolar Neuropathy Renal Transplant Oct 2023 [facility] here for 1 week nausea/appetite loss/intermittent diarrhea/persistent headache. Patient also endorses 'haziness'/confusion and dizziness with stand ambulation. Able to ambulate without assist
device though. Denies falls, blood in diarrhea, vomiting. Patient was evaluated and PCP office then referred to ED d/t hypotension 80s/40s since resolved. Mild Leukocytosis w/ associate tachycardia concerning for possible sepsis due to UTI.
Urinalysis notes pyuria but patient denies denies dysuria. Patient also noted that her urine had been cloudy on/off for most of her life. Labs also concerning for ANKUR Cr 2.2 (baseline 1.0). Renal US unremarkable.
PLAN:
#Possible Sepsis 2/2 UTI causing ANKUR as below
#Nausea/intermittent diarrhea
Tele Admit
BP stable s/p 1L IVF NS bolus in ED
no lactic acidosis
blood cx's pos gram neg bacilli
Urine cx Klebsiella sensitivity appreciated
Ceftriaxone switched to cefazolin based on above sensitivity results
ID eval appreciated
trend WBC, monitor temp
Cdiff antigen pos but toxin neg, suspect benign colonization given lack of persistence diarrhea
#ANKUR
#Right Renal Transplant
Cr 2.2 (baseline 1.0) since significantly improved
monitor renal function
trial IVF gentle hydration NS 70 cc/h completed
Nephro Eval appreciated
07/30 Sirolimus 5.2 Tacrolimus 15.6 levels discussed w/ [facility] Specialist Dr Hoang who recommended holding Envarsus for a day then resuming at reduced dose 4 mg daily (previously 7 mg daily), Sirolimus to cont at current
dose 3 mg daily, repeat levels in the coming week.
#Progressive Anemia with Associated Iron Def
#Anemia of Chronic Disease
Hematology eval appreciated no Iron supplementation recommended at this time, pt has hx hepatic iron overload
H&H since improved, cont monitoring
#Hypokalemia
#Hypophosphatemia
monitor and replete as necessary
#Mild Hyponatremia
Monitor
#Persistent Headache unclear etiology, 1 wk duration
#Dizziness/confusion
Possible Acute Metabolic Encephalopathy 2/2 infection as above
Tylenol prn
CT head appreciated no acute abn's
headache since improved, manageable w/ prn Tylenol
#Bipolar/Anxiety
cont home Lamictal Seroquel Ativan
Full Code
DVT ppx SCD
I spent a total of 45 minutes with the patient or on the floor. More than 50% of this time involved counseling and coordination of care.
Anticipated Discharge: 24 - 48 hours
Subjective/Interval History
-
Date of Service: July 30, 2025
Seen and examined at bedside in no acute distress resting comfortably in bed. Overall patient reports feeling well. Denies new acute issues at this time. Headache intermittent persistent but manageable w/ Tylenol.
Objective Data
-
Labs:
Laboratory Results
07/30/25
06:54
WBC Pending
Hgb Pending
Hct Pending
Plt Count Pending
Sodium Pending
Potassium Pending
Chloride Pending
Carbon Dioxide Pending
BUN Pending
Creatinine Pending
Glucose Pending
Calcium Pending
Vital Signs:
Vital Signs
Temp Pulse Resp BP Pulse Ox
98.3 F 76 16 136/71 98
07/30/25 03:21 07/30/25 03:21 07/30/25 03:21 07/30/25 03:21 07/30/25 03:21
I&O
07/29/25 07/30/25 07/31/25
06:59 06:59 06:59
Intake Total 1560 / 1560
Balance 1560 / 1560
[2025-07-30 07:54] LABS: Hematocrit 28.1 % (37.0-47.0); Hemoglobin 9.1 g/dL (12.0-16.0); Mean Corp Hgb Conc. 32.4 g/dL (33.0-37.0); Mean Corpuscular Volume 84.1 fL (81.0-99.0); Platelet Count 456 10^3/uL (130-400); Red Cell Dist. Width 14.0 % (11.5-14.5); Reticulocyte Count 0.7 % (0.4-2.8)
[2025-07-30 08:11] LABS: Blood Urea Nitrogen 12 mg/dl (7-17); Calcium 8.0 mg/dl (8.4-10.2); Carbon Dioxide 23 mmol/L (22-30); Chloride 109 mmol/L (98-107); Estimated Creatinine Clearance 43 ml/min; Glucose 118 mg/dl (70-99); Magnesium 1.6 mg/dl (1.6-2.3); Potassium 4.1 mmol/L (3.5-5.1); Sodium 136 mmol/L (135-145); eGFR > 60.00
[2025-07-30 08:20] LABS: LDH 183 U/L (120-246)
[2025-07-30] MEDS: NEURONTIN 300 MG PO ×2 (09:06→21:02)
[2025-07-30] MEDS: LIPITOR 10 MG PO (09:06)
[2025-07-30] MEDS: LAMICTAL 200 MG PO (09:06)
[2025-07-30] MEDS: NEUTRA-PHOS POWDER PACKET 250 MG PO ×4 (09:08→21:02)
[2025-07-30] MEDS: SEROQUEL 100 MG PO ×2 (09:08→22:12)
[2025-07-30] MEDS: ATIVAN 1 MG PO (09:08)
[2025-07-30] MEDS: VITAMIN D3 (cholecalciferol) 25 MCG PO (09:08)
[2025-07-30] MEDS: ENVARSUS XR PO (10:06)
[2025-07-30] MEDS: RAPAMUNE PO (10:07)
[2025-07-30] MEDS: STERILE WATER FOR INJECTION IV (10:07)
--- NOTE | 2025-07-30 11:06 | W.PN.NEPH.PH ---
Today's Communication / Plan
-
follow BMP
Assessment/Plan
-
Impression:
Presentation with nausea decreased p.o. intake hypotension, diarrhea, dizziness, leukocytosis
ANKUR (2.2)
History of living unrelated renal transplant at [facility] October 2023 with baseline creatinine of 0.86 as of March 2025
History of eating disorder
Hypokalemia
History of anxiety
History of bipolar disease
History of dyslipidemia
Chronic hypotension with baseline systolics around 100
Plan:
RPA 5, FK 15, dose adjusted per [facility] center recs to RPA3mg, [id number]
follow BMP
abx for Klebsiella per ID
-
-
Date of Service: July 30, 2025
CC / HPI / ROS
-
Chief Complaint:
ANKUR
History of Present Illness:
ANKUR/Cr down to 1.1
on abx for urosepsis
BP improved
Remains anemic hemoglobin 9.1
Review of Systems:
no CP/SOB
appetite improving
Labs
-
Labs:
WBC 8.3 10^3/uL (4.8-10.8) 07/30/25 06:54
RBC 3.34 10^6/uL (4.20-5.40) L 07/30/25 06:54
Hgb 9.1 g/dL (12.0-16.0) L 07/30/25 06:54
Hct 28.1 % (37.0-47.0) L 07/30/25 06:54
Plt Count 456 10^3/uL (130-400) H D 07/30/25 06:54
Sodium 136 mmol/L (135-145) 07/30/25 06:54
Potassium 4.1 mmol/L (3.5-5.1) 07/30/25 06:54
Chloride 109 mmol/L (98-107) H 07/30/25 06:54
Carbon Dioxide 23 mmol/L (22-30) 07/30/25 06:54
BUN 12 mg/dl (7-17) 07/30/25 06:54
Creatinine 1.1 mg/dL (0.6-1.0) H 07/30/25 06:54
eGFR > 60.00 07/30/25 06:54
Glucose 118 mg/dl (70-99) H 07/30/25 06:54
Calcium 8.0 mg/dl (8.4-10.2) L 07/30/25 06:54
Phosphorus 2.7 mg/dl (2.5-4.5) 07/30/25 06:54
Albumin 3.8 g/dl (3.5-5.0) 07/27/25 09:49
Physical Exam
-
Vital Signs:
Vital Signs
Temp Pulse Resp BP Pulse Ox
98.6 F 82 16 132/64 99
07/30/25 07:30 07/30/25 07:30 07/30/25 07:30 07/30/25 07:30 07/30/25 07:30
Cardiovascular:: Regular rate and rhythm
Respiratory:: Bilateral: Coarse
Lung Excursion:: Normal
Abdomen:: Nontender and Soft
Bowel Sounds:: Normal
Extremity Edema:: None: Bilateral:
--- NOTE | 2025-07-30 12:10 | W.PN.ONC2 ---
Today's Communication / Plan
-
No iron supplementation due to known hepatic iron overload.
Hgb improving, no heme recommendations to suggest.
Impression
Impression
ARF, creatinine improving although not yet at baseline
Mild anemia, worsened in setting of acute sepsis and renal insufficiency
Klebsiella urinary infection and bacteremia
Kidney transplant, on immunosuppression
Plan
Plan
Her iron studies are difficult to interpret in the setting of an acute inflammatory process.
She has a history of hepatic iron overload so would not supplement iron, defer to her cardiothoracic surgeon.
Hemoglobin multifactorial: inflammatory state, ARF. Improving with treatment of infection and improvement in kidney function.
Subjective/Objective
Chief Complaint
Heme/Onco follow up of anemia
Subjective
Pt denies new complaint, feeling better than on admission
Vital Signs:
Vital Signs
Temp Pulse Resp BP Pulse Ox
98.6 F 82 16 132/64 99
07/30/25 07:30 07/30/25 07:30 07/30/25 07:30 07/30/25 07:30 07/30/25 07:30
Lab Results:
Laboratory Data
WBC 8.3 10^3/uL (4.8-10.8) 07/30/25 06:54
Hgb 9.1 g/dL (12.0-16.0) L 07/30/25 06:54
Plt Count 456 10^3/uL (130-400) H D 07/30/25 06:54
PT 15.8 Sec (11.4-14.6) H 07/27/25 09:49
INR 1.21 07/27/25 09:49
APTT 38.1 Sec (23.4-35.0) H 07/27/25 09:49
eGFR > 60.00 07/30/25 06:54
Physical Exam
Awake, alert, non-toxic
[2025-07-30] MEDS: RAPAMUNE 3 MG PO (12:55)
[2025-07-30] MEDS: ANCEF 10 IV ×2 (14:33→21:02)
[2025-07-30 15:43] VITALS: BP 103/59
[2025-07-30] MEDS: PROTONIX 40 MG PO (21:02)
[2025-07-30] MEDS: SEROQUEL PO (21:02)
[2025-07-30] MEDS: ATIVAN 0.5 MG PO (22:12)
[2025-07-30] MEDS: TYLENOL 650 MG PO (22:12)
[2025-07-30 23:00] VITALS: BP 103/58
[2025-07-31] MEDS: ANCEF 10 IV ×3 (05:30→19:22)
[2025-07-31 05:33] VITALS: BMI 17.4
[2025-07-31 07:35] LABS: Hematocrit 28.9 % (37.0-47.0); Hemoglobin 9.5 g/dL (12.0-16.0); Mean Corp Hgb Conc. 32.9 g/dL (33.0-37.0); Mean Corpuscular Volume 84.3 fL (81.0-99.0); Platelet Count 508 10^3/uL (130-400); Red Cell Dist. Width 14.2 % (11.5-14.5)
[2025-07-31] MEDS: LAMICTAL 200 MG PO (07:35)
[2025-07-31] MEDS: SEROQUEL 100 MG PO (07:35)
[2025-07-31] MEDS: VITAMIN D3 (cholecalciferol) 25 MCG PO (07:35)
[2025-07-31] MEDS: LIPITOR 10 MG PO (07:36)
[2025-07-31] MEDS: RAPAMUNE 3 MG PO (07:36)
[2025-07-31] MEDS: NEURONTIN 300 MG PO (07:36)
[2025-07-31] MEDS: ATIVAN 1 MG PO (07:36)
[2025-07-31 08:15] VITALS: BP 117/64
[2025-07-31 08:27] LABS: Blood Urea Nitrogen 7 mg/dl (7-17); Calcium 8.6 mg/dl (8.4-10.2); Carbon Dioxide 23 mmol/L (22-30); Chloride 110 mmol/L (98-107); Estimated Creatinine Clearance 47 ml/min; Glucose 110 mg/dl (70-99); Magnesium 1.5 mg/dl (1.6-2.3); Potassium 5.0 mmol/L (3.5-5.1); Sodium 141 mmol/L (135-145); eGFR > 60.00
[2025-07-31] MEDS: NEUTRA-PHOS POWDER PACKET 250 MG PO ×2 (08:32→14:04)
[2025-07-31] MEDS: STERILE WATER FOR INJECTION IV (08:32)
[2025-07-31] MEDS: ENVARSUS XR 4 MG PO (08:32)
--- NOTE | 2025-07-31 08:38 | W.PN.HOSP.TC ---
Addendum entered and electronically signed by Fanny Hernandez MD 07/31/25 16:58:
Hypomagnesemia
-repleted
Original Note:
Today's Communication/Plan
-
Ok to discharge after evening Cefazolin dose
Ok to give evening Cefazolin early 8PM.
Assessment / Plan
Assessment / Plan
Physical Exam
General: No pallor, cyanosis, or jaundice.
HEENT: Throat clear. PERRLA Normocephalic atraumatic
NECK: Supple. No JVD Carotid Bruits
RESPIRATORY: Lungs clear to auscultation. No crackles wheezes stridor
CVS: S1, S2 normal. RRR. No murmur, rub or gallop.
ABDOMEN: Soft, non-tender. No distension. BS+/normal.
EXTREMITIES: No peripheral cyanosis or edema.
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 Conversant coherent
Psych: Calm
IMPRESSION:
49F Bipolar Neuropathy Renal Transplant Oct 2023 [facility] here for 1 week nausea/appetite loss/intermittent diarrhea/persistent headache. Patient also endorses 'haziness'/confusion and dizziness with stand ambulation. Able to ambulate without assist
device though. Denies falls, blood in diarrhea, vomiting. Patient was evaluated and PCP office then referred to ED d/t hypotension 80s/40s since resolved. Mild Leukocytosis w/ associate tachycardia concerning for possible sepsis due to UTI.
Urinalysis notes pyuria but patient denies denies dysuria. Patient also noted that her urine had been cloudy on/off for most of her life. Labs also concerning for ANKUR Cr 2.2 (baseline 1.0). Renal US unremarkable.
PLAN:
#Possible Sepsis 2/2 UTI causing ANKUR as below
#Nausea/intermittent diarrhea
Tele Admit
BP stable s/p 1L IVF NS bolus in ED
no lactic acidosis
blood cx's pos gram neg bacilli
Urine cx Klebsiella sensitivity appreciated
Ceftriaxone switched to cefazolin based on above sensitivity results
ID eval appreciated patient to transition to Oral cephalexin 500 mg QID to continue through 08/10/25
Cdiff antigen pos but toxin neg, benign colonization given lack of persistence diarrhea
#ANKUR
#Right Renal Transplant
Cr 2.2 (baseline 1.0) since significantly improved
monitor renal function
trial IVF gentle hydration NS 70 cc/h completed
Nephro Eval appreciated
07/30 Sirolimus 5.2 Tacrolimus 15.6 levels discussed w/ [facility] Special[facility] Dr Hoang who recommended holding Envarsus for a day then resuming at reduced dose 4 mg daily (previously 7 mg daily), Sirolimus to cont at current
dose 3 mg daily, repeat levels in the coming week with transplant team
#Anemia of Chronic Disease
Hematology eval appreciated no Iron supplementation recommended at this time, pt has hx hepatic iron overload
H&H since improved, cont monitoring
#Hypokalemia
#Hypophosphatemia
monitor and replete as necessary
#Mild Hyponatremia
resolved
#Persistent Headache unclear etiology, 1 wk duration
#Dizziness/confusion
Possible Acute Metabolic Encephalopathy 2/2 infection as above
Tylenol prn
CT head appreciated no acute abn's
headache since improved, manageable w/ prn Tylenol
#Bipolar/Anxiety
cont home Lamictal Seroquel Ativan
Full Code
DVT ppx SCD
Total Time Preparing Discharge ___40____ minutes including examination of the patient, summary of the hospital stay, instructions for continuing care to all relevant caregivers; and preparation of discharge records, prescriptions, and referral
forms if necessary.
Anticipated Discharge: Today
Subjective/Interval History
-
Date of Service: July 31, 2025
No acute distress, sitting up comfortably in bed. Overall reports feeling well. Denies new acute issues. Rich present during evaluation.
Objective Data
-
Labs:
Laboratory Results
07/31/25
07:16
WBC 7.5
Hgb 9.5 L
Hct 28.9 L
Plt Count 508 H
Sodium 141
Potassium 5.0
Chloride 110 H
Carbon Dioxide 23
BUN 7
Creatinine 1.0
Glucose 110 H
Calcium 8.6
Vital Signs:
Vital Signs
Temp Pulse Resp BP Pulse Ox
99.0 F 76 16 117/64 96
07/31/25 08:15 07/31/25 08:15 07/31/25 08:15 07/31/25 08:15 07/31/25 08:15
I&O
07/30/25 07/31/25 08/01/25
06:59 06:59 06:59
Intake Total 1560 / 1560 600 / 600
Balance 1560 / 1560 600 / 600
--- NOTE | 2025-07-31 10:57 | W.PN.NEPH.PH ---
Today's Communication / Plan
-
mag
Assessment/Plan
-
Impression:
Presentation with nausea decreased p.o. intake hypotension, diarrhea, dizziness, leukocytosis
ANKUR (2.2)
History of living unrelated renal transplant at [facility] [address] October 2023 with baseline creatinine of 0.86 as of March 2025
History of eating disorder
Hypokalemia
History of anxiety
History of bipolar disease
History of dyslipidemia
Chronic hypotension with baseline systolics around 100
Plan:
RPA 5, FK 15, dose adjusted per [facility] center recs to RPA3mg, [id number]
follow BMP
abx for Klebsiella per ID
IV mag
-
-
Date of Service: July 31, 2025
CC / HPI / ROS
-
Chief Complaint:
ANKUR
History of Present Illness:
ANKUR/Cr down to 1.0
on abx for urosepsis
BP improved
Remains anemic hemoglobin 9.5
mag 1.5
Review of Systems:
no CP/SOB
Labs
-
Labs:
WBC 7.5 10^3/uL (4.8-10.8) 07/31/25 07:16
RBC 3.43 10^6/uL (4.20-5.40) L 07/31/25 07:16
Hgb 9.5 g/dL (12.0-16.0) L 07/31/25 07:16
Hct 28.9 % (37.0-47.0) L 07/31/25 07:16
Plt Count 508 10^3/uL (130-400) H 07/31/25 07:16
Sodium 141 mmol/L (135-145) 07/31/25 07:16
Potassium 5.0 mmol/L (3.5-5.1) 07/31/25 07:16
Chloride 110 mmol/L (98-107) H 07/31/25 07:16
Carbon Dioxide 23 mmol/L (22-30) 07/31/25 07:16
BUN 7 mg/dl (7-17) 07/31/25 07:16
Creatinine 1.0 mg/dL (0.6-1.0) 07/31/25 07:16
eGFR > 60.00 07/31/25 07:16
Glucose 110 mg/dl (70-99) H 07/31/25 07:16
Calcium 8.6 mg/dl (8.4-10.2) 07/31/25 07:16
Phosphorus 2.9 mg/dl (2.5-4.5) 07/31/25 07:16
Albumin 3.8 g/dl (3.5-5.0) 07/27/25 09:49
Physical Exam
-
Vital Signs:
Vital Signs
Temp Pulse Resp BP Pulse Ox
99.0 F 76 16 117/64 96
07/31/25 08:15 07/31/25 08:15 07/31/25 08:15 07/31/25 08:15 07/31/25 08:15
Cardiovascular:: Regular rate and rhythm
Respiratory:: Bilateral: Coarse
Lung Excursion:: Normal
Abdomen:: Nontender and Soft
Bowel Sounds:: Normal
Extremity Edema:: None: Bilateral:
[2025-07-31] MEDS: MAGNESIUM SULFATE 50 IV (11:24)
--- NOTE | 2025-07-31 14:23 | W.PN.ID1 ---
Date of Service
Date of Service: July 31, 2025
Today's Communication
Continue antibiotics. See below�
Assessment / Plan
UTI due to K. pneumoniae
Bacteremia secondary to UTI
Fever; resolved
Renal Transplant 10/2023
Immunosuppression
Colonization with C diff
- no need to repeat blood cultures for gram negative with known source
- continue cefazolin while inpatient. At discharge, can transition to oral cephalexin 500 mg QID, to continue through 08/10/2025
����������������������������������������������������������
Chief Complaint
-: UTI and Bacteremia
Subjective / Review of Systems
Review of Systems: No Fever, No Chills and No Abdominal Pain
Vital Signs / Physical Exam
Vital Signs
Vital Signs
Temp Pulse Resp BP Pulse Ox
99.0 F 76 16 117/64 96
07/31/25 08:15 07/31/25 08:15 07/31/25 08:15 07/31/25 08:15 07/31/25 08:15
Physical Exam
Constitutional: No Acute Distress, Comfortable and Non-toxic
Eyes: Sclera Anicteric
Cardiovascular: S1/S2; Negative S3/S4
Pulmonary: Non Labored
Gastrointestinal: Soft, Non Tender, Non Distended, Normal Bowel Sounds, No Rebound, No Guarding and Other (No significant tenderness over transplant.)
Neurological: Awake and Alert
Psychological: Calm
Objective Data
Lab Data
Lab Results
07/31/25 07:16
07/31/25 07:16
PT 15.8 Sec (11.4-14.6) H 07/27/25 09:49
INR 1.21 07/27/25 09:49
APTT 38.1 Sec (23.4-35.0) H 07/27/25 09:49
Estimated Creat Clear 47 ml/min 07/31/25 07:16
Lactic Acid Cancelled 07/27/25 13:30
Total Bilirubin 0.3 mg/dl (0.2-1.3) 07/27/25 09:49
AST 32 U/L (14-36) 07/27/25 09:49
ALT 28 U/L (0-35) 07/27/25 09:49
Alkaline Phosphatase 75 U/L (38-126) 07/27/25 09:49
Most recent labs reviewed.
Micro Results:
07/27/25 10:59 Blood Culture - Preliminary
Blood/Venous No Growth in 4 days- Final report to follow
07/28/25 11:51 Salmonella/Shigella Culture - Final
Feces/Stool No Salmonella, Shigella, Aeromonas or Plesiomonas species
isolated.
Campylobacter Culture - Final
No Campylobacter species isolated.
Shiga Toxin Test - Final
No E. coli Shiga Toxin 1 or 2 detected.
07/27/25 10:59 Blood Culture - Preliminary
Blood/Venous Klebsiella pneumoniae
Gram Stain - Preliminary
07/27/25 09:49 Urine Culture - Final
Urine Klebsiella pneumoniae
07/28/25 11:51 C. difficile GDH Antigen & Toxins - Final
Feces/Stool C. difficile antigen positive, toxin negative.
Clostridium difficile present, but toxin not detected.
Patient may be a carrier, colonized with nontoxinogenic
strain or the level of toxin in sample is below detection
limits. This information should be used in conjunction with
the patient's clinical history.
Norovirus (PCR) - Final
Negative for Norovirus GI and GII.
Care Review
Plan reviewed with: Physician (Hospitalist)
[2025-07-31 16:14] VITALS: BP 105/55
--- NOTE | 2025-07-31 17:23 | W.DCSUMMARY ---
Discharge Summary
Discharge Data
Date of Admission: 07/27/25
Date of Discharge: 07/31/25
-
Pending Results: Yes (immunology light chain results)
Discharge Plan
-
Patient Disposition: Home (Routine Discharge)
Discharge Diagnosis/Procedures: Sepsis secondary to Urinary tract infection causing Acute Kidney Injury since resolved
Bacteremia due to Urinary Tract Infection Klebsiella pneumoniae
Anemia of Chronic Disease
Right Renal Transplant
Condition: Good
Diet: Regular
Activity: As tolerated
Driving Restrictions: As prior to admission
Bathing Restrictions: None
Blood Work: Follow up with transplant team to repeat Sirolimus and Tacrolimus levels within 1 week of discharge.
Follow up with primary care provider for repeat CBC and BMP in 1 week of discharge.
Activity Restrictions/Additional Instructions:
Follow up with primary care provider in 1 week of discharge. Hematology in 2-4 weeks of discharge.
For urinary tract infection causing bacteremia, Keflex (cephalexin) 500 mg four times a day has been prescribed to start 08/01/25 and to continue through 08/10/25 then stop.
Due to elevated levels, Envarsus has been reduced to 4 mg daily.
Please take medications as prescribed/recommended and follow up with primary care provider, transplant team, and/or other healthcare provider involved in your care for refills and/or further adjustment to your medication regimen as necessary.
Referrals:
Felipe Wilhelm DO [Family Provider, Family Practice] - in one week
Karl Poe MD [Active, Hematology / Oncology] - in two to four weeks
Prescriptions:
New
cephalexin 500 mg capsule
500 mg PO QID 10 Days Qty: 40 0RF
Rx Instructions:
Start 08/01/25 and continue through 08/10/25 then stop
Continued
gabapentin 300 MG capsule
300 mg PO BID
quetiapine [Seroquel] 100 MG tablet
100 mg PO BID
omeprazole 20 mg capsule,delayed release(DR/EC)
20 mg PO HS
Medical Marijuana
1 dose PO DAILYPRN PRN (Reason: anxiety/SLEEP)
Patient Comments:
atorvastatin [Lipitor] 10 mg Tablet
10 mg PO DAILY
quetiapine [Seroquel] 50 mg Tablet
50 mg PO DAILYPRN PRN (Reason: anxiety)
magnesium chloride 64 mg magnesium Tablet
360 mg PO BID
lorazepam 1 mg Tablet
1 mg PO DAILY
lamotrigine [Lamictal] 200 mg Tablet
200 mg PO DAILY
lorazepam 0.5 mg Tablet
0.5 mg PO BIDPRN PRN (Reason: anxiety)
sirolimus 1 mg Tablet
3 mg PO DAILY
cholecalciferol (vitamin D3) [Vitamin D3] 25 mcg (1,000 unit) Tablet
25 mcg PO DAILY
Changed
Envarsus XR 1 mg Tablet Extended Release 24 Hr
4 mg PO DAILY Qty: 0 0RF
Discharge Orders:
Discharge Patient (As Directed); Ordered 07/31/25
Ordered By: Fanny Hernandez
Discharge Date and Time
Print Language: GREEK
[2025-07-31 19:39] VITALS: BP 107/55
[2025-08-01 04:07] LABS: Free Kappa Light Chains,Quant 31.87 mg/L (3.30-19.40); Free Lambda Light Chains,Quant 38.11 mg/L (5.71-26.30); Kappa/Lambda Fr Light Ratio 0.84 (0.26-1.65)
== END 2025-07-31 19:56 | disposition home or self-care (01) | DRG 871 ==
LOC: 4 WEST ACU 13:16
PROVIDERS: Physician Assistant Medical; ADMITTING PHYSICIAN Internal Medicine; CONSULT PHYSICIAN Internal Medicine Hematology & Oncology; CONSULT PHYSICIAN Specialist; EMERGENCY PHYSICIAN Emergency Medicine; FAMILY PHYSICIAN Family Medicine; OTHER PHYSICIAN Student in an Organized Health Care Education/Training Program
DX: A41.59 Other Gram-negative sepsis (principal); G93.41 Metabolic encephalopathy; N18.6 End stage renal disease; T86.19 Other complication of kidney transplant; N17.9 Acute kidney failure, unspecified; N39.0 Urinary tract infection, site not specified; E87.1 Hypo-osmolality and hyponatremia; D84.821 Immunodeficiency due to drugs; F17.200 Nicotine dependence, unspecified, uncomplicated; Y83.0 Surgical operation with transplant of whole organ as the cause of abnormal reaction of the patient, or of later complication, without mention of misadventure at the time of the procedure; E83.42 Hypomagnesemia; B96.1 Klebsiella pneumoniae [K. pneumoniae] as the cause of diseases classified elsewhere; D63.1 Anemia in chronic kidney disease; E87.6 Hypokalemia; F41.9 Anxiety disorder, unspecified; F31.9 Bipolar disorder, unspecified; Z79.60 Long term (current) use of unspecified immunomodulators and immunosuppressants; R65.20 Severe sepsis without septic shock; Z79.899 Other long term (current) drug therapy
CPT/HCPCS: 70450; 76775; 80048; 80053; 80195; 80197; 81003; 81015; 82140; 82607; 82728; 82746; 83521; 83540; 83550; 83605; 83615; 83690; 83735; 84100; 85025; 85027; 85045; 85610; 85730; 87040; 87045; 87046; 87077; 87086; 87154; 87186; 87205; 87324; 87427; 87449; 87798; 96361; 96374; 99285